=== PATIENT | female | born 1935 | race Caucasian/White ===

== ENCOUNTER 2016-11-06 17:22 | Outpatient (CLI) | payer MEDICARE, BC | END 2016-11-06 17:23 | disposition critical access hospital (66) | LOC: EMS 17:22 | PROVIDERS: ATTEND Surgery | DX: R51 Headache (principal); S09.90XA Unspecified injury of head, initial encounter; W18.30XA Fall on same level, unspecified, initial encounter; Y92.002 Bathroom of unspecified non-institutional (private) residence as the place of occurrence of the external cause; R05 Cough | CPT/HCPCS: A0425; A0429 ==

== ENCOUNTER 2016-11-06 17:37 | Emergency (ER) | payer MEDICARE, BC ==
[2016-11-06] MEDS ORDERED: OXYMETAZOLINE NASAL SPRAY NAS STA (17:45)
[2016-11-06] MEDS ORDERED: BENZONATATE 100 MG CAPSULE PO STA (17:45)
[2016-11-06] MEDS ORDERED: BENZONATATE 100 MG CAPSULE PO ONE ×2 (17:55→17:58)
[2016-11-06] MEDS ORDERED: OXYMETAZOLINE NASAL SPRAY NAS ONE (17:55)
== END 2016-11-06 19:22 | disposition home or self-care (01) ==
DX: S02.2XXA Fracture of nasal bones, initial encounter for closed fracture (principal); S09.90XA Unspecified injury of head, initial encounter; S00.83XA Contusion of other part of head, initial encounter; W18.39XA Other fall on same level, initial encounter; R05 Cough; R06.2 Wheezing; E10.22 Type 1 diabetes mellitus with diabetic chronic kidney disease; I12.0 Hypertensive chronic kidney disease with stage 5 chronic kidney disease or end stage renal disease; N18.6 End stage renal disease; Z99.2 Dependence on renal dialysis; Z79.4 Long term (current) use of insulin; I51.7 Cardiomegaly; Z79.82 Long term (current) use of aspirin
CPT/HCPCS: 36415; 70450; 70486; 71020; 80053; 83690; 85025; 99283; 99284; A9270

== ENCOUNTER 2016-12-02 18:54 | Outpatient (CLI) | payer MEDICARE, BC | END 2016-12-02 18:55 | disposition home or self-care (01) | DX: M79.662 Pain in left lower leg (principal); R93.8 Abnormal findings on diagnostic imaging of other specified body structures ==

== ENCOUNTER 2017-01-12 14:10 | Outpatient (CLI) | payer MEDICARE, BC | END 2017-01-12 14:11 | disposition home or self-care (01) | DX: E78.5 Hyperlipidemia, unspecified (principal); M10.9 Gout, unspecified ==

== ENCOUNTER 2017-01-29 17:21 | Outpatient (CLI) | payer MEDICARE, BC ==
[2017-01-29 18:53] LABS: CALCIUM 8.6 mg/dL (8.5-10.3); CREATININE 6.9 mg/dL (0.4-1.0); POTASSIUM 3.4 mmol/L (3.5-5.0)
[2017-01-29] MEDS ORDERED: IOPAMIDOL-300 100 ML VIAL IVP ONE (19:43)
--- NOTE | 2017-01-29 20:19 | CT Preliminary Report ---
Exam: CT Chest Angio (PE) IMPRESSION: 1. IV infiltration; cannot exclude pulmonary embolism. 2. Cardiomegaly, trace pericardial effusion, and coronary artery calcifications. 3. Large left upper quadrant cyst, most likely renal. 4. Mild bilateral bronchiectasis and other chronic or incidental findings. [facility] The call report notification system was initiated by Dr. Sourav De Guzman at 20:05 hrs on 01/29/17. The above findings were discussed with Dr. Churchill by Dr. Sourav De Guzman at 20:18 hrs on 01/29/17. SITE ID: [id number]
--- NOTE | 2017-01-29 20:22 | CT Report ---
EXAM: CT ANGIOGRAM CHEST EXAM DATE: 01/29/2017 07:41 PM. CLINICAL HISTORY: SHORTNESS OF BREATH. COMPARISON: None. TECHNIQUE: Routine helical imaging was performed through the chest in the pulmonary arterial phase. I V Contrast: Infiltration of the entire dose, 100 cc Isovue-300. Nursing was notified and IV infiltrat ion kit employed. Reconstructions: Sagittal, coronal, and 3-D MIP. In accordance with CT protocol optimization, one or more of the following dose reduction techniques w ere utilized for this exam: automated exposure control, adjustment of mA and/or KV based on patient s ize, or use of iterative reconstructive technique. FINDINGS: Pulmonary Arteries: Diagnostic quality: Inadequate through the segmental arteries. Cannot exclude pulmonary embolism. Lungs/Pleura: Bilateral bronchiectasis predominantly in the bases. No localized infiltrate, consolida tion, effusion, or pneumothorax. Extensive tracheal and bronchial cartilage calcification. Mediastinum: Mild to moderate cardiomegaly, trace pericardial effusion. At least 3 vessel coronary ar tahir calcifications. Calcifications of mitral annulus. No lymphadenopathy. Thoracic Aorta: Unremarkable. Upper Abdomen: Multiple hepatic cysts or hemangiomata. Large left upper quadrant cyst, most likely ar ising from kidney, incompletely seen. Other: None. IMPRESSION: 1. IV infiltration; cannot exclude pulmonary embolism. 2. Cardiomegaly, trace pericardial effusion, and coronary artery calcifications. 3. Large left upper quadrant cyst, most likely renal. 4. Mild bilateral bronchiectasis and other chronic or incidental findings. [facility] The call report notification system was initiated by Dr. Sourav De Guzman at 20:05 hrs on 01/29/17. The above findings were discussed with Dr. Churchill by Dr. Sourav De Guzman at 20:18 hrs on 01/29/17. Referring Provider Line: [phone] SITE ID: [id number]
== END 2017-01-29 17:22 | disposition home or self-care (01) ==
LOC: LAB 17:21
PROVIDERS: ATTEND Family Medicine
DX: I51.7 Cardiomegaly (principal); J47.9 Bronchiectasis, uncomplicated; I10 Essential (primary) hypertension
CPT/HCPCS: 36415; 71275; 80048; Q9967

== ENCOUNTER 2017-01-29 19:46 | Emergency (ER) | payer MEDICARE, BC ==
[2017-01-29] MEDS ORDERED: HYALURONIDASE HUMAN RECOMB 150 UNIT/ML VIAL ID ONE (20:14)
--- NOTE | 2017-01-29 20:15 | ED Physician Documentation ---
PD HPI UPPER EXT INJURY - Stated complaint Stated Complaint: MEDICATION NEEDED - Chief complaint Chief Complaint: General - History obtained from History obtained from: Patient - History of Present Illness Location: Right, Forearm Type of injury: Other (she was getting CT-A of chest and some contrast extravasated into her AC area. Brought here to ED to get the hyaluronidase injection per usual, but apparently is not a protocol, and there was not Radiologist to give order for the medication.) Where injury occurred: Other (Imaging dept of [facility]) Timing - onset: How many minutes ago (30) Timing - details: Abrupt onset, Still present Worsened by: Palpating (slightly tender locally). No: Moving Associated symptoms: No: Weakness, Numbness, Swelling Review of Systems Constitutional: denies: Fever, Chills Cardiac: reports: Chest pain / pressure (for several days) Respiratory: reports: Dyspnea GI: denies: Nausea, Vomiting Neurologic: denies: Focal weakness, Numbness PD PAST MEDICAL HISTORY - Past Medical History Cardiovascular: Hypertension, High cholesterol, Murmur Respiratory: None Neuro: None Endocrine/Autoimmune: Type 1 diabetes GI: None : Dialysis, Renal insuffiency HEENT: Chronic vision loss Psych: None Musculoskeletal: Osteoarthritis, Osteoporosis, Osteopenia, Gout, Chronic back pain Derm: Other - Past Surgical History 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, Other - Present Medications Home Medications: Ambulatory Orders Medication Instructions Recorded Confirmed Allopurinol [Zyloprim] 100 mg PO BID 04/05/13 11/06/16 Furosemide [Lasix] 160 mg PO BID 04/05/13 11/06/16 Insulin Glargine,Hum.rec.anlog 0 units SUBCUT QPM 04/05/13 11/06/16 [Lantus Solostar] Insulin Glulisine [Apidra Solostar] 0 unit SUBCUT TIDWM 04/05/13 11/06/16 Aspirin [Aspir 81] 81 mg PO DAILY 11/22/13 11/06/16 Gabapentin 600 mg PO BID 06/05/16 11/06/16 Vit B Cmplx 3/FA/Vit C/Biotin 1 each PO DAILY 06/05/16 11/06/16 [Winnie-Janeen Rx Tablet] Albuterol Sulfate [Proventil Hfa 1 unit INH PRN PRN 11/06/16 11/06/16 Inhaler] Carvedilol [Coreg] 25 mg PO DAILY 11/06/16 11/06/16 Folic Acid/Vit Bcomp,C [Winnie-Janeen 0 mg PO DAILY 11/06/16 11/06/16 Tablet] - Allergies Allergies/Adverse Reactions: Allergies Allergy/AdvReac Type Severity Reaction Status Date / Time amoxicillin Allergy Unknown Rash Verified 01/29/17 19:49 codeine Allergy Unknown Nausea Verified 01/29/17 19:49 hydrocodone Allergy Unknown Nausea Verified 01/29/17 19:49 Sulfa (Sulfonamide Allergy Unknown Rash Verified 01/29/17 19:49 Antibiotics) - Social History Does the pt smoke?: No Smoking Status: Never smoker Does the pt drink ETOH?: No Does the pt have substance abuse?: No - Immunizations Immunizations are current?: Yes - POLST Patient has POLST: No PD ED PE NORMAL - Vitals Vital signs reviewed: Yes - General General: Alert and oriented X 3, No acute distress, Well developed/nourished - Derm Derm: Normal color, Warm and dry - Extremities Extremities: Normal ROM s pain, No edema, Other (the right forearm with mild local bruising at AC. No pain with ROM of the elbow nor wrist. Normal sensation and color/cap refill in hand.) - Neuro Neuro: No motor deficit, No sensory deficit Results - Vitals Vitals: Oxygen O2 Source Room air PD MEDICAL DECISION MAKING - ED course Complexity details: considered differential (came from CT with contrast extravasation to get hyaluronidase per protocol. Radiologist not in house to order med and apparently not a protocol. The patient does not have any symptoms of pressure injury to arm. The CT was done but angio part nondiagnostic. At this time, prelim shows mild pericaridal effusion, no else acute. cannot exclude PE. Report called to PMD and I will defer further evaluation of it to PMD. ), d/w patient Departure - Departure Disposition: 01 Home, Self Care Clinical Impression: Extravasation injury Condition: Stable Record reviewed to determine appropriate education?: Yes Comments: Warm towels to the elbow area periodically tonight and tomorrow. Recheck if problems in the area. Discharge Date/Time: 01/29/17 21:30
[2017-01-29 21:30] VITALS: BP 139/65
== END 2017-01-29 21:30 | disposition home or self-care (01) ==
LOC: ED 19:46
DX: T80.818A Extravasation of other vesicant agent, initial encounter (principal); Y84.8 Other medical procedures as the cause of abnormal reaction of the patient, or of later complication, without mention of misadventure at the time of the procedure; Y92.238 Other place in hospital as the place of occurrence of the external cause; I10 Essential (primary) hypertension; E78.00 Pure hypercholesterolemia, unspecified; E10.9 Type 1 diabetes mellitus without complications; Z79.4 Long term (current) use of insulin; N28.9 Disorder of kidney and ureter, unspecified; Z99.2 Dependence on renal dialysis; M19.90 Unspecified osteoarthritis, unspecified site; M10.9 Gout, unspecified
CPT/HCPCS: 36415; 71275; 80048; 96372; 99283; 99284; Q9967

== ENCOUNTER 2017-02-11 09:57 | Outpatient (CLI) | payer MEDICARE, BC | END 2017-02-11 09:58 | disposition home or self-care (01) | LOC: LAB 09:57 | PROVIDERS: ATTEND Internal Medicine Nephrology | DX: I50.32 Chronic diastolic (congestive) heart failure (principal) | CPT/HCPCS: 36415; 83880 ==

== ENCOUNTER 2017-02-11 10:17 | Outpatient (CLI) | payer MEDICARE, BC ==
--- NOTE | 2017-02-11 15:57 | XRAY Report ---
TWO VIEW CHEST: 02/11/2017 CLINICAL INDICATION: Dyspnea for three weeks. COMPARISON: CT of 01/29/2017, plain film of 11/06/2016. FINDINGS: Frontal and lateral views of the chest demonstrate a normal cardiac silhouette. The lungs are clear. No pulmonary vascular congestion, effusion, or pneumothorax is present. IMPRESSION: NO EVIDENCE OF ACUTE CARDIOPULMONARY DISEASE. JOB #: [id number] EXT JOB #:[id number]
== END 2017-02-11 10:18 | disposition home or self-care (01) ==
LOC: DI 10:17
PROVIDERS: ATTEND Internal Medicine Nephrology
DX: R06.00 Dyspnea, unspecified (principal); I50.32 Chronic diastolic (congestive) heart failure
CPT/HCPCS: 36415; 71020; 83880

== ENCOUNTER 2017-03-22 11:08 | Outpatient (CLI) | payer MEDICARE, BC ==
--- NOTE | 2017-03-22 15:28 | Ultrasound Report ---
EXAM: BILATERAL LOWER EXTREMITY VENOUS ULTRASOUND EXAM DATE: 03/22/2017 11:20 AM. CLINICAL HISTORY: VARICOSE VEINS OF BILATERAL LOWER EXTREMITIES. Chronic lymphoid edema in the leg, c linical concern for DVT. COMPARISON: 12/02/2016. TECHNIQUE: Real-time sonographic vascular imaging was performed by the facility examiner through the lower extremities utilizing both color-flow and Doppler spectral analysis. Multiple career representative static i mages were saved for review. FINDINGS: Right: Common Femoral Vein (CFV): Normal. CFV-GSV Junction: Normal. Profunda Femoral Vein (PFV): Normal. Femoral Vein (FV) Prox: Normal. Femoral Vein (FV) Mid: Normal. Femoral Vein (FV) Dist: Normal. Popliteal Vein: Normal. Posterior Tibial Veins: Normal. Peroneal Veins: Normal. Left: Common Femoral Vein (CFV): Normal. CFV-GSV Junction: Normal. Profunda Femoral Vein (PFV): Normal. Femoral Vein (FV) Prox: Normal. Femoral Vein (FV) Mid: Normal. Femoral Vein (FV) Dist: Normal. Popliteal Vein: Normal. Posterior Tibial Veins: Normal. Peroneal Veins: Normal. Other: The prior left popliteal fossa nonvascular collection cannot be well seen. No fluid collection or focal abnormal Doppler flow in the right erazo can be identified. IMPRESSION: No evidence for deep venous thrombosis bilaterally. [facility] Referring Provider Line: [phone] SITE ID: [id number]
== END 2017-03-22 11:09 | disposition home or self-care (01) ==
LOC: DI 11:08
PROVIDERS: ATTEND Family Medicine
DX: I83.813 Varicose veins of bilateral lower extremities with pain (principal)
CPT/HCPCS: 93970

== ENCOUNTER 2017-03-23 10:28 | Outpatient (CLI) | payer MEDICARE, BC ==
[2017-03-23 20:06] LABS: BASOPHILS # (AUTO) 0.1 10^3/uL (0.0-0.1); BASOPHILS % (AUTO) 0.8 %; EOSINOPHILS # (AUTO) 0.3 10^3/uL (0.0-0.7); EOSINOPHILS % (AUTO) 2.6 %; HCT - HEMATOCRIT 31.2 % (37.0-47.0); LYMPHOCYTES # (AUTO) 0.8 10^3/uL (1.5-3.5); LYMPHOCYTES % (AUTO) 8.2 %; MEAN CORPUSCULAR HEMOGLOBIN 30.8 pg (27.0-31.0); MEAN CORPUSCULAR HGB CONC 32.2 g/dL (32.0-36.0); MEAN CORPUSCULAR VOLUME 95.6 fL (81.0-99.0); MEAN PLATELET VOLUME 7.7 fL (7.9-10.8); MONOCYTES # (AUTO) 1.2 10^3/uL (0.0-1.0); MONOCYTES % (AUTO) 12.3 %; NEUTROPHILS # (AUTO) 7.3 10^3/uL (1.5-6.6); NEUTROPHILS % (AUTO) 76.1 %; RED BLOOD COUNT 3.26 10^6/uL (4.20-5.40); RED CELL DISTRIBUTION WIDTH 16.9 % (12.0-15.0); UNCORRECTED WHITE BLOOD COUNT 9.6 x10^3/uL; WHITE BLOOD COUNT 9.6 x10^3/uL (4.8-10.8)
[2017-03-23 20:39] LABS: ALBUMIN/GLOBULIN RATIO 0.8 (1.0-2.2); BILIRUBIN,TOTAL 0.5 mg/dL (0.2-1.0); CALCIUM 9.2 mg/dL (8.5-10.3); POTASSIUM 3.5 mmol/L (3.5-5.0); TOTAL PROTEIN 6.9 g/dL (6.7-8.2)
[2017-03-23 21:15] LABS: HEMOGLOBIN A1C 0.46 g/dL
== END 2017-03-23 23:59 | disposition home or self-care (01) ==
LOC: LAB.WCP 10:28
PROVIDERS: ATTEND Family Medicine
DX: L03.115 Cellulitis of right lower limb (principal); M79.89 Other specified soft tissue disorders; E11.29 Type 2 diabetes mellitus with other diabetic kidney complication
CPT/HCPCS: 36415; 80053; 83036; 85025

== ENCOUNTER 2017-04-15 08:37 | Outpatient (CLI) | payer MEDICARE, BC | END 2017-04-15 08:38 | disposition home or self-care (01) | LOC: DI 08:37 | PROVIDERS: ATTEND Family Medicine | DX: R01.1 Cardiac murmur, unspecified (principal); R06.02 Shortness of breath; I35.0 Nonrheumatic aortic (valve) stenosis; I51.7 Cardiomegaly; R22.41 Localized swelling, mass and lump, right lower limb | CPT/HCPCS: 93306 ==

== ENCOUNTER 2017-04-15 08:37 | Outpatient (CLI) | payer MEDICARE, BC ==
--- NOTE | 2017-04-15 22:07 | CT Report ---
EXAM: RIGHT TIBIA/CALF WITHOUT CONTRAST EXAM DATE: 04/15/2017 09:02 AM. CLINICAL HISTORY: LOCALIZED SWELLING, MASS LUMP, RIGHT LOWER LIMB. COMPARISON: None. TECHNIQUE: Thin-section axial images were acquired of the tibia/fibula/calf without contrast. Post-pr ocessing: Coronal and sagittal reformats. Other: None. In accordance with CT protocol optimization, one or more of the following dose reduction techniques w ere utilized for this exam: automated exposure control, adjustment of mA and/or KV based on patient s ize, or use of iterative reconstructive technique. FINDINGS: Bones: No fracture or bone lesion. Joints: The knee and ankle joints are not included in the [id number]. Musculature: Normal. No fatty atrophy. Other: Prominent arterial calcifications. Throughout the visualized anterior, lateral and to a lesser degree medial subcutaneous fat of the mid and lower portion of the lower right leg, there are patchy areas of soft tissue thickening, fat stranding, and patchy associated small nodular and some linear branching soft tissue calcifications. Some of these calcifications definitely appear vascular in etio logy with many of the calcifications appearing nodular and not associated with a branching vascular p attern. There are some associated nodular areas of soft tissue thickening including ill-defined 1 cm diameter areas anterior to the tibia on axial image 100. Additional partially calcified nodular areas include an 8 mm area laterally on image 137. Multiple subcentimeter areas anteriorly between images 145 and 165. 1 cm nodular area at the anteromedial aspect on axial image 164. IMPRESSION: 1. Extensive areas of small chunky nodular as well as branching vascular-appearing subcutaneous soft tissue calcifications mostly clustered over the anterior and lateral aspect of the mid and lower port ions of the right lower leg. Some associated ill-defined areas of somewhat nodular soft tissue thicke rodri and fat stranding. The appearance is not specific. Soft tissue hemangioma or vascular malformati on are possible, but would typically have a more defined appearance. Multiple causes of dystrophic ca lcification may be considered, including prior infection, trauma or inflammatory process. Dermatomyos itis or scleroderma may be considered. Metabolic etiologies, such as hyperparathyroidism or hypervita minosis D may be considered. Infiltrating neoplasm is felt less likely, but could be considered. Biop sy in some of the more nodular-appearing areas may help to better characterize if indicated. [facility] Referring Provider Line: [phone] SITE ID: [id number]
== END 2017-04-15 08:38 | disposition home or self-care (01) ==
LOC: DI 08:37
PROVIDERS: ATTEND Family Medicine
DX: R22.41 Localized swelling, mass and lump, right lower limb (principal)

== ENCOUNTER 2017-06-29 10:57 | Outpatient (CLI) | payer MEDICARE, BC ==
--- NOTE | 2017-06-30 19:05 | Mammography Report ---
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 COMPARISON: 05/2016, 05/2015, 05/2014, 05/2013, 05/2012. TECHNIQUE: Routine CC and MLO projections were obtained of the breasts. The breasts demonstrate scattered fibroglandular densities bilaterally. Postoperative and post-treat ment changes in the right lower inner quadrant are stable. Coarse and punctate, typically benign mariana cifications are present. No suspicious masses, clustered microcalcifications, or regions of architec tural distortion are identified. IMPRESSION: BENIGN FINDINGS. RECOMMENDATION: ROUTINE ANNUAL SCREENING UNLESS OTHERWISE CLINICALLY INDICATED. BIRADS CATEGORY: 2, BENIGN FINDINGS. STANDARD QUALIFYING STATEMENTS 1. This examination was reviewed with the aid of Computed-Aided Detection (CAD). 2. A negative or benign imaging report should not delay biopsy if clinically suspicious findings are present. Consider surgical consultation if warranted. More than 5% of cancers are not identified b y imaging. 3. Dense breasts may obscure an underlying neoplasm. JOB #: [id number] EXT JOB #:[id number]
== END 2017-06-29 10:58 | disposition home or self-care (01) ==
LOC: DI 10:57
PROVIDERS: ATTEND Internal Medicine Hematology & Oncology
DX: Z12.31 Encounter for screening mammogram for malignant neoplasm of breast (principal); Z85.3 Personal history of malignant neoplasm of breast
CPT/HCPCS: 77067

== ENCOUNTER 2017-08-11 07:23 | Outpatient (CLI) | payer MEDICARE, BC | END 2017-08-11 07:24 | disposition EMS.NT | LOC: EMS 07:23 | PROVIDERS: ATTEND Surgery | DX: R55 Syncope and collapse (principal) ==

== ENCOUNTER 2017-11-12 05:20 | Outpatient (CLI) | payer MEDICARE, BC | END 2017-11-12 05:21 | disposition critical access hospital (66) | LOC: EMS 05:20 | PROVIDERS: ATTEND Surgery | DX: M54.5 Low back pain (principal); R26.81 Unsteadiness on feet; R41.0 Disorientation, unspecified; W19.XXXA Unspecified fall, initial encounter; Z91.81 History of falling; Y92.003 Bedroom of unspecified non-institutional (private) residence as the place of occurrence of the external cause | CPT/HCPCS: A0425; A0429 ==

== ENCOUNTER 2017-11-12 05:36 | Emergency (ER) | payer MEDICARE, BC ==
--- NOTE | 2017-11-12 05:52 | ED Physician Documentation ---
PD HPI BACK INJURY - Stated complaint Stated Complaint: GLF - LOWER BACK PAIN, CONFUSION - History obtained from History obtained from: Patient - History of Present Illness Location: Lower Type of injury: Fall Where injury occurred: Home Timing - onset: How many hours ago (couple) Timing - duration: Hours (she had fallen stumbled with walker going to bathroom. She says her legs did feel weak. Denies hitting head, but landed onto buttocks with low back pain. Once down, she could not get back up, and had to call EMS for lift assist. They helped her up but felt that she was weak on her legs and she slumped down again. She also seemed slightly confused and so Medics brought her in for evaluation. Patient had been seen recently for neck pain and has new med Rx of Baclofen which she started a few days ago. She says she was feeling somewhat foggy and lightheaded after taking it.) Timing - details: Abrupt onset, Still present Quality: Pain (lumbar area) Worsened by: Moving, Palpating (of lower back) Associated symptoms: No: Fever, Weakness, Numbness Contributing factors: No: Anticoagulated, Prior back surgery Recently seen: Clinic (several days ago for neck pain and Rx Baclofen 5 mg BID.) Review of Systems Constitutional: denies: Fever, Chills Nose: denies: Rhinorrhea / runny nose, Congestion Throat: denies: Sore throat Cardiac: denies: Chest pain / pressure, Palpitations Respiratory: denies: Dyspnea, Cough, Wheezing GI: denies: Abdominal Pain, Nausea, Vomiting, Diarrhea Skin: denies: Abrasion (s), Laceration (s) Musculoskeletal: reports: Back pain (abruptly after falling tonight) Neurologic: reports: Generalized weakness. 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, Other - Present Medications Home Medications: Ambulatory Orders Medication Instructions Recorded Confirmed Allopurinol [Zyloprim] 100 mg PO BID 04/05/13 06/23/17 Furosemide [Lasix] 160 mg PO BID 04/05/13 06/23/17 Gabapentin 600 mg PO BID 06/05/16 06/23/17 Ferrous Sulfate [Ferrous Sulfate] 65 mg PO DAILY PM 06/23/17 06/23/17 Vit B Cmplx 3/FA/Vit C/Biotin 1 tab PO DAILY 06/23/17 06/23/17 [Winnie-Janeen Rx Tablet] - Allergies Allergies/Adverse Reactions: Allergies Allergy/AdvReac Type Severity Reaction Status Date / Time amoxicillin Allergy Unknown Rash Verified 11/12/17 05:52 codeine Allergy Unknown Nausea Verified 11/12/17 05:52 hydrocodone Allergy Unknown Nausea Verified 11/12/17 05:52 Sulfa (Sulfonamide Allergy Unknown Rash Verified 11/12/17 05:52 Antibiotics) - Social History Does the pt smoke?: No Smoking Status: Never smoker Does the pt drink ETOH?: No Does the pt have substance abuse?: No - Immunizations Immunizations are current?: Yes - POLST Patient has POLST: No PD ED PE NORMAL - Vitals Vital signs reviewed: Yes - General General: Alert and oriented X 3 (but with some word search and perseveration seems c/w concussive effect.), No acute distress, Well developed/nourished - HEENT HEENT: Atraumatic, PERRL, EOMI, Pharynx benign - Neck Neck: Supple, no meningeal sign, No bony TTP, No adenopathy, No JVD, No bruit - Cardiac Cardiac: RRR, No murmur - Respiratory Respiratory: Clear bilaterally - Abdomen Abdomen: Soft, Non tender, Other (dialysis tubing in place. ) - Back Back: Other (lumbar spine tender to palpation in mid to upper lumbar area. ) - Derm Derm: Normal color - Extremities Extremities: No tenderness to palpate, No edema, No calf tenderness / cord - Neuro Neuro: Alert and oriented X 3, No motor deficit, Normal speech, Other (having some repetitive answers and trouble with some word search. No focal deficits. Is oriented, but just a bit slow and repetitive. ) Eye Opening: Spontaneous Motor: Obeys Commands Verbal: Oriented GCS Score: 15 Results - Vitals Vitals: Vital Signs - 24 hr 11/12/17 11/12/17 11/12/17 05:39 06:21 07:51 Temperature 36.8 C Heart Rate 101 H 96 97 Respiratory 17 17 17 Rate Blood Pressure 193/87 H 170/87 H 175/77 H O2 Saturation 100 96 97 Oxygen O2 Source Room air - Labs Labs: Laboratory Tests 11/12/17 11/12/17 06:30 06:30 WBC 18.5 H RBC 2.96 L Hgb 9.4 L Hct 28.8 L MCV 97.2 MCH 31.8 H MCHC 32.8 RDW 16.3 H Plt Count 306 MPV 7.1 L Neut # 16.6 H Lymph # 0.5 L Mccone # 1.4 H Eos # 0.0 Baso # 0.0 Absolute Nucleated RBC 0.02 Nucleated RBC % 0.1 Sodium 130 L Potassium 2.2 L* Chloride 90 L Carbon Dioxide 24 Anion Gap 16.0 H BUN 37 H Creatinine 6.3 H Estimated GFR (MDRD) 6 L Glucose 268 H Calcium 8.0 L Phosphorus 4.8 H Magnesium 1.3 L Total Bilirubin 0.7 AST 25 ALT 19 Alkaline Phosphatase 88 Total Protein 6.4 L Albumin 2.9 L Globulin 3.5 Albumin/Globulin Ratio 0.8 L Lipase 19 L - Rads (name of study) head CT Radiology: Prelim report reviewed (no acute process), EMP read contemporaneously lumbar CT Radiology: Prelim report reviewed (L2 compression body fracture with 15% loss of height. ), EMP read contemporaneously PD MEDICAL DECISION MAKING - ED course Complexity details: re-evaluated patient (She was unable to stand with walker due to pain in back. Will give more pain meds. I am concerned about the altered train of thought, in context of fall at home, could genna concussive symptoms. She is recently Rx Baclofen few days ago, so could be med side effect. Also with very low Potassium, likely contributing to the weakness and fall. Problem is she is on home peritoneal dialysis and our hospital does not have policy on this the hospital. So patient will need to be transferred. She has been to [facility] and her Quality Assurance Lab Technician, Dr. JUNG Pang is there. ), d/w remediation bioanalytics consultant (our hospitalist who said would not be able to treat patient here due to the need for dialysis (even peritoneal). So will call [facility] for bed availability. ) Departure - Departure Disposition: 02 Transfer Acute Care Hosp Clinical Impression: Generalized weakness, Acute hypokalemia, Acute low back pain due to trauma Fall from slip, trip, or stumble Qualifiers: Encounter type: initial encounter Qualified Code(s): W01.0XXA - Fall on same level from slipping, tripping and stumbling without subsequent striking against object, initial encounter Lumbar compression fracture Qualifiers: Encounter type: initial encounter Lumbar vertebra fracture level: L2 Fracture type: closed Qualified Code(s): S32.020A - Wedge compression fracture of second lumbar vertebra, initial encounter for closed fracture Altered mental status Qualifiers: Altered mental status type: unspecified Qualified Code(s): R41.82 - Altered mental status, unspecified Concussion Qualifiers: Encounter type: initial encounter Loss of consciousness presence/duration: with LOC of unspecified duration Qualified Code(s): S06.0X9A - Concussion with loss of consciousness of unspecified duration, initial encounter Chronic renal failure Qualifiers: Chronic kidney disease stage: unspecified stage Qualified Code(s): N18.9 - Chronic kidney disease, unspecified Condition: Stable Record reviewed to determine appropriate education?: Yes
[2017-11-12] MEDS ORDERED: ACETAMINOPHEN 325 MG TABLET PO STA (06:14)
[2017-11-12 06:34] LABS: HGB - HEMOGLOBIN 9.4 g/dL (12.0-16.0); MEAN PLATELET VOLUME 7.1 fL (7.9-10.8); MONOCYTES # (AUTO) 1.4 10^3/uL (0.0-1.0); RED CELL DISTRIBUTION WIDTH 16.3 % (12.0-15.0)
[2017-11-12 06:40] LABS: BASOPHILS % (AUTO) 0.1 %; EOSINOPHILS % (AUTO) 0.2 %; LYMPHOCYTES # (AUTO) 0.5 10^3/uL (1.5-3.5); LYMPHOCYTES % (AUTO) 2.5 %; MEAN CORPUSCULAR HEMOGLOBIN 31.8 pg (27.0-31.0); MEAN CORPUSCULAR HGB CONC 32.8 g/dL (32.0-36.0); MEAN CORPUSCULAR VOLUME 97.2 fL (81.0-99.0); MONOCYTES % (AUTO) 7.7 %; NEUTROPHILS # (AUTO) 16.6 10^3/uL (1.5-6.6); NEUTROPHILS % (AUTO) 89.5 %; PLT - PLATELET COUNT 306 10^3/uL (130-450); RED BLOOD COUNT 2.96 10^6/uL (4.20-5.40); WHITE BLOOD COUNT 18.5 x10^3/uL (4.8-10.8)
[2017-11-12 06:49] LABS: ALBUMIN 2.9 g/dL (3.2-5.5); ALBUMIN/GLOBULIN RATIO 0.8 (1.0-2.2); BILIRUBIN,TOTAL 0.7 mg/dL (0.2-1.0); CREATININE 6.3 mg/dL (0.4-1.0); MAGNESIUM 1.3 mg/dL (1.7-2.8); PHOSPHORUS 4.8 mg/dL (2.5-4.6); TOTAL PROTEIN 6.4 g/dL (6.7-8.2)
[2017-11-12] MEDS ORDERED: POTASSIUM BICARB 25 MEQ TABLET PO STA ×2 (07:10→12:30)
[2017-11-12] MEDS ORDERED: MAGNESIUM OXIDE 400 MG TABLET PO STA (07:10)
--- NOTE | 2017-11-12 07:36 | CT Report ---
EXAM: CT HEAD EXAM DATE: 11/12/2017 06:50 AM. CLINICAL HISTORY: Fell onto buttock/low back, but some confused. COMPARISON: 11/06/2016. TECHNIQUE: Multiaxial CT images were obtained from the foramen magnum to the vertex. Reformats: Coron al. IV contrast: None. In accordance with CT protocol optimization, one or more of the following dose reduction techniques w ere utilized for this exam: automated exposure control, adjustment of mA and/or KV based on patient s ize, or use of iterative reconstructive technique. FINDINGS: Parenchyma: No intraparenchymal hemorrhage. No evidence of mass, midline shift, or CT findings of acu te infarction. Kaplan-white differentiation is distinct. Diffuse chronic microangiopathic white matter changes are evident. Extraaxial Spaces: Stable prominent subarachnoid space along right temporal lobe may represent a smal l arachnoid cyst No subdural or epidural collections identified. Ventricles: The ventricles and cortical sulci are enlarged, consistent with age-related tissue loss. Sinuses and orbits: Mucosal thickening sphenoid sinus Imaged orbits, and mastoids show no significa nt abnormality. Bones: No evidence of fracture or calvarial defect. Other: None. IMPRESSION: Generalized age-related cortical atrophic changes without evidence of acute intracranial abnormality. [facility] Referring Provider Line: [phone] SITE ID: [id number]
--- NOTE | 2017-11-12 07:36 | CT Preliminary Report ---
Exam: CT HEAD W/O IMPRESSION: Generalized age-related cortical atrophic changes without evidence of acute intracranial abnormality. [facility] SITE ID: [id number]
[2017-11-12] MEDS ORDERED: traMADol 50 MG TABLET PO STA (07:53)
--- NOTE | 2017-11-12 07:54 | CT Preliminary Report ---
Exam: CT LUMBAR SPINE W/O IMPRESSION: 1. L2 vertebral body fracture may extend into the posterior third of the vertebral body 2. Severe left hydro-ureter hydronephrosis incompletely visualized with moderate free fluid in the ab domen, pelvis. CT abdomen and pelvis may be helpful for further evaluation. [facility] SITE ID: [id number]
--- NOTE | 2017-11-12 07:54 | CT Report ---
EXAM: CT LUMBAR SPINE WITHOUT CONTRAST EXAM DATE: 11/12/2017 06:50 AM. CLINICAL HISTORY: Fell onto buttocks, with pain in left low spine. COMPARISONS: 10/17/2008 CT abdomen and pelvis. TECHNIQUE: Thin-section axial images were acquired of the lumbar spine from T12 to S1 without contras t. Post-processing: Coronal and sagittal reformats. Other: None. In accordance with CT protocol optimization, one or more of the following dose reduction techniques w ere utilized for this exam: automated exposure control, adjustment of mA and/or KV based on patient s ize, or use of iterative reconstructive technique. FINDINGS: Alignment: Grade 1 spondylolisthesis L5 on S1 Bones: Five aae-oup-aoranpo lumbar vertebral bodies are present. L2 vertebral body fracture. This may reach the posterior third of the vertebral body. Central comp ression loss of height of 15%. No retropulsion of the vertebral body. No free fragment in the thecal sac. Disk Levels/Facets: T12-L1: Unremarkable. L1-L2: Unremarkable. L2-L3: Mild bulge L3-L4: Left paracentral to neural foraminal protrusion. Narrowing of the inferior left neural foramin a. L4-L5: Moderate diffuse fold more prominent along the left side. Ligamentum flavum thickening. Narrow ing of inferior neural foramina L5-S1: Uncovering of the disk moderate diffuse bulge. Moderate facet arthropathy. Bilateral neural fo raminal narrowing. Musculature: Normal. No fatty atrophy. Other: Right renal cyst, hyperdense foci. Left kidney severe hydroureteronephrosis. There is free flu id in the abdomen and pelvis pockets measuring up to 7 cm. Diverticulosis IMPRESSION: 1. L2 vertebral body fracture may extend into the posterior third of the vertebral body 2. Severe left hydro-ureter hydronephrosis incompletely visualized with moderate free fluid in the ab domen, pelvis. CT abdomen and pelvis may be helpful for further evaluation. [facility] Referring Provider Line: [phone] SITE ID: [id number]
[2017-11-12] MEDS ORDERED: POTASSIUM CHLOR 10 MEQ/100 ML 10 MEQ/100 ML BAG IV ONE (08:30)
[2017-11-12] MEDS ORDERED: fentaNYL 100 MCG/2 ML VIAL IVP STA ×2 (08:52→13:48)
[2017-11-12 10:32] LABS: BILIRUBIN,URINE NEGATIVE (NEGATIVE); GLUCOSE, URINE (UA) NEGATIVE (NEGATIVE); KETONES,URINE (UA) NEGATIVE (NEGATIVE); LEUKOCYTE ESTERASE, URINE SMALL (NEGATIVE); NITRITE,URINE NEGATIVE (NEGATIVE); OCCULT BLOOD,URINE SMALL (NEGATIVE); PH,URINE 6.5 PH (5.0-7.5); PROTEIN,URINE 100 mg/dL (NEGATIVE); UROBILINOGEN,URINE 0.2 (NORMAL) E.U./dL (NORMAL)
[2017-11-12 10:35] LABS: CLARITY,URINE HAZY (CLEAR)
[2017-11-12 10:47] LABS: BACTERIA,URINE Many /HPF (None Seen); RBC,URINE 0-5 /HPF (0-5); SQUAMOUS EPITHELIAL CELL,UR MANY Squamous (<= Few)
--- NOTE | 2017-11-12 12:52 | ED Physician Documentation ---
ED Addendum - Addendum Addendum: 11/12/17 12:49 Care of patient turned over to me by Dr. Saavedra at shift change. The patient has new compression fracture at L2 and concussion. She has low potassium as well and does peritoneal dialysis at home by herself. She is no longer able to get up out of bed and appears a bit confused. Dr. Francia Leos is accepting hospitalist at [facility] in [place]. EKG: time: 12:41 sinus at 90, LAFB, LVH, prolonged QT (QTc= 513) non-specific T abnormalities lateral leads, late transition. [facility] 11/12/17 12:52
[2017-11-12 13:38] VITALS: BP 161/76
== END 2017-11-12 13:56 | disposition short-term general hospital (02) ==
LOC: EDUNIT# → ED 05:36
DX: S32.020A Wedge compression fracture of second lumbar vertebra, initial encounter for closed fracture (principal); S06.0X9A Concussion with loss of consciousness of unspecified duration, initial encounter; W01.0XXA Fall on same level from slipping, tripping and stumbling without subsequent striking against object, initial encounter; Y93.01 Activity, walking, marching and hiking; Y92.009 Unspecified place in unspecified non-institutional (private) residence as the place of occurrence of the external cause; M54.5 Low back pain; I12.9 Hypertensive chronic kidney disease with stage 1 through stage 4 chronic kidney disease, or unspecified chronic kidney disease; E11.22 Type 2 diabetes mellitus with diabetic chronic kidney disease; N18.9 Chronic kidney disease, unspecified; Z79.4 Long term (current) use of insulin; Z99.2 Dependence on renal dialysis; Q60.0 Renal agenesis, unilateral; R53.1 Weakness; E87.6 Hypokalemia; R41.82 Altered mental status, unspecified; I44.4 Left anterior fascicular block; R94.31 Abnormal electrocardiogram [ECG] [EKG]; E78.00 Pure hypercholesterolemia, unspecified; M19.90 Unspecified osteoarthritis, unspecified site; M10.9 Gout, unspecified
CPT/HCPCS: 36415; 70450; 72131; 80053; 81001; 83690; 83735; 84100; 85025; 93005; 96365; 96375; 96376; 99285; A9270; 81003; 87086; 99284

== ENCOUNTER 2017-11-12 13:57 | Outpatient (CLI) | payer MEDICARE, BC | END 2017-11-12 13:58 | disposition short-term general hospital (02) | LOC: EMS 13:57 | PROVIDERS: ATTEND Surgery | DX: E87.6 Hypokalemia (principal); M54.5 Low back pain; R41.82 Altered mental status, unspecified; Z99.2 Dependence on renal dialysis | CPT/HCPCS: A0170; A0425; A0426 ==

== ENCOUNTER 2017-12-21 00:42 | Outpatient (CLI) | payer MEDICARE, BC | END 2017-12-21 00:43 | disposition critical access hospital (66) | LOC: EMS 00:42 | PROVIDERS: ATTEND Surgery | DX: R06.02 Shortness of breath (principal) | CPT/HCPCS: A0425; A0427 ==

== ENCOUNTER 2017-12-21 00:58 | Emergency (ER) | payer MEDICARE, BC ==
--- NOTE | 2017-12-21 01:29 | ED Physician Documentation ---
PD HPI DYSPNEA - Stated complaint Stated Complaint: SOA - Chief complaint Chief Complaint: Resp - History obtained from History obtained from: Patient - History of Present Illness Timing - onset: How many days ago (2) Timing - details: Gradual onset, Waxing and waning Pain level now: 0 Associated symptoms: Bilateral edema. No: Fever, Cough, Wheezing, Chest pain / discomfort, Palpitations Similar symptoms before: Has not had sx before - Additional information Additional information: c/o 2 days of shortness of breath, worse with exertion. Has not had this before. Was having peritoneal dialysis up until last month (since February,) when she was started on [facility] HD, last session was Thursday (she says it was shorten than usual due to scheduling issues with her transport home), and next HD session is scheduled for 12/21/17 at 2:30 PM. She does still produce urine and takes 80mg BID furosemide for peripheral edema. BIBA. medics recommended she consider transfer to [facility], as they would be able to perform HD. Patient refused and asked about [facility], preferring transfer there. As the ferries were not running, the medics felt it would be more appropriate to transfer to [facility] if she truly refuses transfer to [facility]. Patient was agreeable to this plan. Review of Systems Constitutional: denies: Fever, Chills, Sweats Cardiac: reports: Pedal edema. denies: Chest pain / pressure, Palpitations Respiratory: reports: Dyspnea, Cough. 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, Other - Present Medications Home Medications: Ambulatory Orders Medication Instructions Recorded Confirmed Furosemide [Lasix] 80 mg PO BID 04/05/13 06/23/17 Gabapentin 600 mg PO BID 06/05/16 06/23/17 Vit B Cmplx 3/FA/Vit C/Biotin 1 tab PO DAILY 06/23/17 06/23/17 [Winnie-Janeen Rx Tablet] Acetaminophen [Tylenol Extra 500 mg PO TID 12/21/17 12/21/17 Strength] Insulin Glargine [Lantus Solostar] 10 units SQ DAILY 12/21/17 12/21/17 Insulin Lispro [Humalog Kwikpen 3 units SQ TID 12/21/17 12/21/17 U-100] Sevelamer Carbonate 3 tab PO TID 12/21/17 12/21/17 Spironolactone 25 mg PO BID 12/21/17 12/21/17 oxyCODONE [Roxicodone] 5 mg PO Q4HR PRN 12/21/17 12/21/17 - Allergies Allergies/Adverse Reactions: Allergies Allergy/AdvReac Type Severity Reaction Status Date / Time amoxicillin Allergy Unknown Rash Verified 12/21/17 01:05 codeine Allergy Unknown Nausea Verified 12/21/17 01:05 hydrocodone Allergy Unknown Nausea Verified 12/21/17 01:05 Sulfa (Sulfonamide Allergy Unknown Rash Verified 12/21/17 01:05 Antibiotics) - Social History Does the pt smoke?: No Smoking Status: Never smoker Does the pt drink ETOH?: No Does the pt have substance abuse?: No - Immunizations Immunizations are current?: Yes - POLST Patient has POLST: No PD ED PE NORMAL - Vitals Vital signs reviewed: Yes - General General: Alert and oriented X 3, No acute distress (conversant but often needs to stop mid-sentence to take another breath), Well developed/nourished - HEENT HEENT: Moist mucous membranes - Neck Neck: Supple, no meningeal sign - Cardiac Cardiac: RRR PD ED PE EXPANDED - Cardiac Cardiac: Regular Rate, Murmur Present (2/6 KYLAH at base, greatest at 2nd left ICS ). No: S3, S4 Results - Vitals Vitals: Vital Signs - 24 hr 12/21/17 12/21/17 12/21/17 02:07 02:33 03:06 Heart Rate 104 H 104 H 106 H Respiratory 18 24 24 Rate Blood Pressure 145/87 H 182/95 H 175/89 H O2 Saturation 92 94 94 12/21/17 12/21/17 12/21/17 04:19 07:18 09:04 Heart Rate 95 102 H 100 Respiratory 20 18 18 Rate Blood Pressure 171/82 H 177/100 H 161/89 H O2 Saturation 94 95 94 Oxygen O2 Source Nasal cannula Oxygen Flow Rate 3 - EKG (time done) No standard instances Rate: Rate (enter#) (106) Rhythm: Sinus tachycardia, LAE Palmer: LAD Intervals: Normal MS QRS: LVH Ischemia: Normal ST segments, Q waves (III, aVF) Compare to prior EKG: Unchanged from prior EKG (11/12/17) - Labs Labs: Laboratory Tests 12/21/17 12/21/17 12/21/17 02:05 02:05 02:05 WBC 8.2 RBC 2.84 L Hgb 9.3 L Hct 28.1 L MCV 99.1 H MCH 32.7 H MCHC 33.1 RDW 16.7 H Plt Count 323 MPV 7.1 L Neut # 5.9 Lymph # 0.9 L [place] # 0.9 Eos # 0.3 Baso # 0.2 H Absolute Nucleated RBC 0.00 Nucleated RBC % 0.0 Sodium 130 L Potassium 4.4 Chloride 92 L Carbon Dioxide 27 Anion Gap 11.0 BUN 28 H Creatinine 5.1 H Estimated GFR (MDRD) 8 L Glucose 140 H POC Whole Bld Glucose Calcium 8.9 B-Natriuretic Peptide 3068 H 12/21/17 08:28 WBC RBC Hgb Hct MCV MCH MCHC RDW Plt Count MPV Neut # Lymph # [place] # Eos # Baso # Absolute Nucleated RBC Nucleated RBC % Sodium Potassium Chloride Carbon Dioxide Anion Gap BUN Creatinine Estimated GFR (MDRD) Glucose POC Whole Bld Glucose 135 H Calcium B-Natriuretic Peptide - Rads (name of study) chest xray Radiology: Prelim report reviewed, See rad report PD MEDICAL DECISION MAKING - ED course Complexity details: reviewed old records, reviewed results, re-evaluated patient , considered differential, d/w patient ED course: patient says she has not needed to use or be given oxygen in the past and tonight her symptoms did improve with NC supplemental oxygen (3 liters). On arrival to ED, oxygen was removed to move patient to ED stretcher and her pulse ox went from 94% to 88%; this again improved rapidly with placement of the oxygen NC 3L. After multiple pages to Dr. Mccoy, still hadn't received call back here. I then contacted the transfer service at [place], and they inform me that Dr. Rodriguez is on-call nephrology (my OBIEE ARCHITECT was told Dr. Mccoy by the dialysis center in [place]). I was subsequently called by Dr. Pang. He called to the dialysis center in [place] and then called me back; he was able to change patient's dialysis to 9:30 AM. Patient was held in ED until 8:45 AM and then sent to dialysis in [place]. She was in NAD at the time of discharge with mild HTN and mid-90s pulse ox with 3 liters NC oxygen. Departure - Departure Disposition: 01 Home, Self Care Clinical Impression: Chronic renal failure Qualifiers: Chronic kidney disease stage: unspecified stage Qualified Code(s): N18.9 - Chronic kidney disease, unspecified Dyspnea Qualifiers: Dyspnea type: unspecified Qualified Code(s): R06.00 - Dyspnea, unspecified Condition: Good Instructions: ED Renal Failure Chronic, ED Dyspnea Shortness of Breath, ED Dialysis Hemo Follow-Up: Matilde Churchill MD [Primary Care Provider] - Comments: You will be taken from the emergency department to the dialysis center in [place]. Your symptoms should dramatically improve, possibly resolve, with the dialysis. Discharge Date/Time: 12/21/17 09:04
[2017-12-21] MEDS ORDERED: NITROGLYCERIN SL 0.4 MG TABLET SL STA (01:56)
[2017-12-21] MEDS ORDERED: FUROSEMIDE 40 MG/4 ML VIAL IVP STA (01:57)
[2017-12-21 02:09] LABS: BASOPHILS # (AUTO) 0.2 10^3/uL (0.0-0.1); BASOPHILS % (AUTO) 2.3 %; EOSINOPHILS # (AUTO) 0.3 10^3/uL (0.0-0.7); EOSINOPHILS % (AUTO) 3.5 %; HGB - HEMOGLOBIN 9.3 g/dL (12.0-16.0); LYMPHOCYTES # (AUTO) 0.9 10^3/uL (1.5-3.5); LYMPHOCYTES % (AUTO) 11.1 %; MEAN CORPUSCULAR HEMOGLOBIN 32.7 pg (27.0-31.0); MEAN CORPUSCULAR HGB CONC 33.1 g/dL (32.0-36.0); MEAN CORPUSCULAR VOLUME 99.1 fL (81.0-99.0); MEAN PLATELET VOLUME 7.1 fL (7.9-10.8); MONOCYTES # (AUTO) 0.9 10^3/uL (0.0-1.0); MONOCYTES % (AUTO) 10.9 %; NEUTROPHILS # (AUTO) 5.9 10^3/uL (1.5-6.6); NEUTROPHILS % (AUTO) 72.2 %; PLT - PLATELET COUNT 323 10^3/uL (130-450); RED BLOOD COUNT 2.84 10^6/uL (4.20-5.40); RED CELL DISTRIBUTION WIDTH 16.7 % (12.0-15.0); WHITE BLOOD COUNT 8.2 x10^3/uL (4.8-10.8)
[2017-12-21 02:17] LABS: CALCIUM 8.9 mg/dL (8.5-10.3); CREATININE 5.1 mg/dL (0.4-1.0)
--- NOTE | 2017-12-21 02:43 | XRAY Report ---
EXAM: CHEST RADIOGRAPHY EXAM DATE: 12/21/2017 02:27 AM. CLINICAL HISTORY: Dyspnea. COMPARISON: Chest radiograph 10/28/2017 TECHNIQUE: 2 views. FINDINGS: Lungs/Pleura: Small left and trace right pleural effusion. Interval increase in prominence of the pul monary vasculature. No evidence of pneumothorax. Mediastinum: Moderate enlargement of the cardiomediastinal silhouette. Other: Right IJ catheter tip is within the distal SVC. Compression fracture of the L2 vertebral body. Atherosclerosis of the visualized aorta. IMPRESSION: Moderate enlargement of the cardiomediastinal silhouette with interval increase in promin ence of the pulmonary vasculature. Small left and trace right pleural effusions. Overall, the finding s may represent congestive heart failure. [facility] Referring Provider Line: [phone] SITE ID: [id number]
[2017-12-21] MEDS ORDERED: ACETAMINOPHEN 325 MG TABLET PO STA ×2 (02:58→07:24)
[2017-12-21] MEDS ORDERED: NITROGLYCERIN 2% PASTE TOP STA (03:13)
[2017-12-21 09:07] VITALS: BP 161/89
== END 2017-12-21 09:04 | disposition home or self-care (01) ==
LOC: EDUNIT# → ED 00:58 → SUPCPDRO 00:58 → ED 09:04
DX: I12.9 Hypertensive chronic kidney disease with stage 1 through stage 4 chronic kidney disease, or unspecified chronic kidney disease (principal); E11.22 Type 2 diabetes mellitus with diabetic chronic kidney disease; N18.9 Chronic kidney disease, unspecified; R06.00 Dyspnea, unspecified; Z79.4 Long term (current) use of insulin; Z99.2 Dependence on renal dialysis
CPT/HCPCS: 36415; 71046; 80048; 83880; 85025; 93005; 96374; 99284; A9270

== ENCOUNTER 2017-12-21 09:04 | Outpatient (CLI) | payer MEDICARE, BC | END 2017-12-21 09:05 | disposition home or self-care (01) | LOC: EMS 09:04 | PROVIDERS: ATTEND Surgery | DX: N18.9 Chronic kidney disease, unspecified (principal) | CPT/HCPCS: A0425; A0428 ==

== ENCOUNTER 2017-12-29 13:09 | Outpatient (CLI) | payer MEDICARE, BC ==
--- NOTE | 2017-12-29 16:41 | DEXA Report ---
DEXA SCAN: 12/29/2017 CLINICAL INDICATION: Bone disorder. TECHNIQUE: Dual energy x-ray absorptiometry (DXA) was performed on a [employer] system. Regions measured are the AP spine, femoral neck, and, if needed, forearm. COMPARISON: 06/17/2016. In accordance with the International Society for Clinical Densitometry (ISCD) guidelines, data from previous exams may be reanalyzed using current recommendations and techniques. This is done to allow a more accurate basis for comparison with the current study. FINDINGS Data for the lumbar spine is as follows: REGION BMD (g/cm/cm) T-SCORE Z-SCORE L3 1.124 -0.6 0.6 L4 1.139 -0.5 0.7 L3-L4 1.132 -0.6 0.6 NOTE: All evaluable vertebrae are used for classification - L1 and L2 were excluded from analysis, due to overlying metallic artifacts. Data for the hip is as follows: REGION BMD (g/cm/cm) T-SCORE Z-SCORE Neck 0.741 -2.1 -0.3 TOTAL 0.787 -1.8 -0.1 NOTE: The femoral neck or total proximal femur, whichever is lowest, is used for classification. DEXA RESULTS SUMMARY: Spine 3 SCAN DATE AGE BMD T-SCORE BMD CHANGE VS BASELINE BMD CHANGE VS PREVIOUS 12/29/2017 [age] 1.132 -- 0.030 2.7 06/17/2016 80.8 1.102 -- -- -- * Denotes significant change at the 95% confidence level. Denotes dissimilar scan types or analysis methods. DEXA RESULTS SUMMARY: Total hip 3 SCAN DATE AGE BMD T-SCORE BMD CHANGE VS BASELINE BMD CHANGE VS PREVIOUS 12/29/2017 82.3 0.787 -- -0.058* -6.9* 06/17/2016 80.8 0.845 -- -- -- * Denotes significant change at the 95% confidence level. Denotes dissimilar scan types or analysis methods. IMPRESSION 1. WHO CLASSIFICATION BASED ON THE INTERNATIONAL REFERENCE STANDARD IS OSTEOPENIA. FRACTURE RISK IS INCREASED. 2. THERE HAS BEEN STATISTICALLY SIGNIFICANT INTERVAL DECREASE IN BONE MINERAL DENSITY OF THE LEFT HIP FROM 06/17/2016. 3. L1 AND L2 WERE EXCLUDED FROM ANALYSIS, DUE TO OVERLYING METALLIC ARTIFACTS. RECOMMENDATION: Patients with diagnosis of osteoporosis or osteopenia should have regular bone mineral density assessment. For those eligible for Medicare, routine testing is allowed once every 2 years. Testing frequency can be increased for patients who have rapidly progressing disease or for those who are receiving medical therapy to restore bone mass. COMMENT World Health Organization (WHO) definitions for osteoporosis and osteopenia: NORMAL BMD: T-score at 1.0 or higher, fracture risk is low. OSTEOPENIA BMD: T-score between 1.0 and -2.5, fracture risk is increased. OSTEOPOROSIS BMD: T-score at 2.5 or lower, fracture risk high. National Osteoporosis Foundation recommends: 1. Obtain adequate dietary calcium (at least 1200 mg per day) and vitamin D (400 -800 international units per day). 2. Participate, as appropriate, in regular weightbearing and muscle- strengthening exercise. 3. Avoid tobacco use and reduce alcohol and caffeine intake. 4. For more detailed information see the website at www.NOF.org. TD: 12/29/2017 14:49 SUSIE
== END 2017-12-29 13:10 | disposition home or self-care (01) ==
LOC: DI 13:09
PROVIDERS: ATTEND Family Medicine
DX: M85.88 Other specified disorders of bone density and structure, other site (principal); N19 Unspecified kidney failure; S32.020A Wedge compression fracture of second lumbar vertebra, initial encounter for closed fracture
CPT/HCPCS: 77080

== ENCOUNTER 2018-01-28 17:05 | Outpatient (CLI) | payer MEDICARE, BC | END 2018-01-28 17:06 | disposition critical access hospital (66) | LOC: EMS 17:05 | PROVIDERS: ATTEND Surgery | DX: R06.02 Shortness of breath (principal); R07.89 Other chest pain | CPT/HCPCS: A0425; A0429 ==

== ENCOUNTER 2018-01-28 17:23 | Emergency (ER) | payer MEDICARE, BC ==
[2018-01-28] MEDS ORDERED: FUROSEMIDE 100 MG/10 ML VIAL IVP STA (17:42)
--- NOTE | 2018-01-28 17:44 | ED Physician Documentation ---
PD HPI DYSPNEA - Stated complaint Stated Complaint: SOA - Chief complaint Chief Complaint: Resp - History obtained from History obtained from: Patient, EMS - History of Present Illness Timing - onset: Today (This is a nicole 82-year-old woman with history of end- stage renal disease currently on Thursday hemodialysis. She abruptly felt short of breath today while laying flat, feels better sitting up. She was hypoxic and brought here for further evaluation and treatment. She does have mild chest pressure with it and no increased pedal edema. Of note she had dialysis yesterday in the got to her goal weight. She has not been eating a low-salt diet though, she lives at a assisted living facility and they do not do individual diets. She had quite a bit of ham today. She had a very similar episode approximately 2 weeks ago with hypoxemia and felt better after her next dialysis run.) Review of Systems Constitutional: denies: Fever, Chills Cardiac: reports: Pedal edema (But not increased from her usual). denies: Palpitations, Calf pain Respiratory: reports: Dyspnea, Cough (dry). 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, Other - Present Medications Home Medications: Ambulatory Orders Medication Instructions Recorded Confirmed Furosemide [Lasix] 80 mg PO BID 04/05/13 06/23/17 Gabapentin 600 mg PO BID 06/05/16 06/23/17 Vit B Cmplx 3/FA/Vit C/Biotin 1 tab PO DAILY 06/23/17 06/23/17 [Winnie-Janeen Rx Tablet] Acetaminophen [Tylenol Extra 500 mg PO TID 12/21/17 12/21/17 Strength] Insulin Glargine [Lantus Solostar] 10 units SQ DAILY 12/21/17 12/21/17 Insulin Lispro [Humalog Kwikpen 3 units SQ TID 12/21/17 12/21/17 U-100] Sevelamer Carbonate 3 tab PO TID 12/21/17 12/21/17 Spironolactone 25 mg PO BID 12/21/17 12/21/17 oxyCODONE [Roxicodone] 5 mg PO Q4HR PRN 12/21/17 12/21/17 Allopurinol [Allopurinol] 1 tab PO DAILY 01/28/18 01/28/18 Doxycycline Monohydrate 1 cap PO BID 01/28/18 01/28/18 - Allergies Allergies/Adverse Reactions: Allergies Allergy/AdvReac Type Severity Reaction Status Date / Time amoxicillin Allergy Unknown Rash Verified 01/28/18 17:31 codeine Allergy Unknown Nausea Verified 01/28/18 17:31 hydrocodone Allergy Unknown Nausea Verified 01/28/18 17:31 Sulfa (Sulfonamide Allergy Unknown Rash Verified 01/28/18 17:31 Antibiotics) - Social History Does the pt smoke?: No Smoking Status: Never smoker Does the pt drink ETOH?: No Does the pt have substance abuse?: No - Immunizations Immunizations are current?: Yes - POLST Patient has POLST: No PD ED PE NORMAL - Vitals Vital signs reviewed: Yes - General General: Alert and oriented X 3, No acute distress - HEENT HEENT: PERRL, EOMI - Neck Neck: Supple, no meningeal sign, No bony TTP - Cardiac Cardiac: RRR, No murmur - Respiratory Respiratory: Other (Diminished at the bases significantly) - Abdomen Abdomen: Soft, Non tender - Extremities Extremities: Other (Symmetric large ankles, nontender) - Neuro Neuro: Alert and oriented X 3, Normal speech - Psych Psych: Normal mood, Normal affect Results - Vitals Vitals: Vital Signs - 24 hr 01/28/18 01/28/18 01/28/18 17:28 18:34 19:20 Temperature 36.7 C 36.3 C L Heart Rate 121 H 115 H 114 H Respiratory 20 20 23 Rate Blood Pressure 184/96 H 189/97 H 125/110 H O2 Saturation 89 L 91 L 96 Oxygen O2 Source Nasal cannula Oxygen Flow Rate 2 - EKG (time done) 1825 Rate: Rate (enter#) (117) Rhythm: Sinus tachycardia [place]: Normal Intervals: Other (LAFB) QRS: LVH, Poor R wave progression Compare to prior EKG: Unchanged from prior EKG (from 12/21/17) Computer interpretation: Agree with computer - Labs Labs: Laboratory Tests 01/28/18 01/28/18 01/28/18 18:00 18:00 18:00 WBC 7.0 RBC 4.14 L Hgb 13.0 Hct 40.7 MCV 98.2 MCH 31.3 H MCHC 31.8 L RDW 16.3 H Plt Count 300 MPV 7.4 L Neut # 5.1 Lymph # 0.9 L [place] # 0.8 Eos # 0.1 Baso # 0.1 Absolute Nucleated RBC 0.00 Nucleated RBC % 0.0 Sodium 139 Potassium 4.1 Chloride 99 L Carbon Dioxide 30 Anion Gap 10.0 BUN 22 H Creatinine 3.8 H Estimated GFR (MDRD) 11 L Glucose 157 H Calcium 9.3 Total Bilirubin 0.8 AST 18 ALT 16 Alkaline Phosphatase 99 Total Creatine Kinase 22 CK-MB (CK-2) 1.5 Troponin I 0.04 B-Natriuretic Peptide Total Protein 6.8 Albumin 3.7 Globulin 3.1 Albumin/Globulin Ratio 1.2 Lipase 33 01/28/18 18:00 WBC RBC Hgb Hct MCV MCH MCHC RDW Plt Count MPV Neut # Lymph # [place] # Eos # Baso # Absolute Nucleated RBC Nucleated RBC % Sodium Potassium Chloride Carbon Dioxide Anion Gap BUN Creatinine Estimated GFR (MDRD) Glucose Calcium Total Bilirubin AST ALT Alkaline Phosphatase Total Creatine Kinase CK-MB (CK-2) Troponin I B-Natriuretic Peptide 2092 H Total Protein Albumin Globulin Albumin/Globulin Ratio Lipase - Rads (name of study) 2v chest Radiology: EMP read contemporaneously (Mild diffuse bilateral interstitial hazy opacities slightly decreased compared to prior, could represent mild interstitial pulmonary edema, there is a small left pleural effusion of that appears decreased from the prior, cardiomegaly.) PD MEDICAL DECISION MAKING - ED course ED course: 82-year-old woman on chronic dialysis now presents with breathlessness and orthopnea and evidence of congestive heart failure. I spoke with her surface supervisor at [facility], Dr. Mac who recommended transfer to [place] for urgent dialysis. The hospitalist at [place] was paged at that time. Spoke with Dr Dunne at [facility] who accepts in er. Malena completed. Departure - Departure Disposition: 02 Transfer Acute Care Hosp Clinical Impression: Congestive heart failure Qualifiers: Heart failure type: high output Qualified Code(s): I50.83 - High output heart failure Chronic renal failure Qualifiers: Chronic kidney disease stage: stage 5 Qualified Code(s): N18.5 - Chronic kidney disease, stage 5 Condition: Serious
[2018-01-28 18:14] LABS: BASOPHILS # (AUTO) 0.1 10^3/uL (0.0-0.1); BASOPHILS % (AUTO) 1.3 %; EOSINOPHILS # (AUTO) 0.1 10^3/uL (0.0-0.7); EOSINOPHILS % (AUTO) 1.2 %; LYMPHOCYTES # (AUTO) 0.9 10^3/uL (1.5-3.5); LYMPHOCYTES % (AUTO) 12.8 %; MEAN CORPUSCULAR HEMOGLOBIN 31.3 pg (27.0-31.0); MEAN CORPUSCULAR HGB CONC 31.8 g/dL (32.0-36.0); MEAN CORPUSCULAR VOLUME 98.2 fL (81.0-99.0); MEAN PLATELET VOLUME 7.4 fL (7.9-10.8); MONOCYTES # (AUTO) 0.8 10^3/uL (0.0-1.0); NEUTROPHILS # (AUTO) 5.1 10^3/uL (1.5-6.6); NEUTROPHILS % (AUTO) 72.7 %; PLT - PLATELET COUNT 300 10^3/uL (130-450); RED BLOOD COUNT 4.14 10^6/uL (4.20-5.40); RED CELL DISTRIBUTION WIDTH 16.3 % (12.0-15.0)
[2018-01-28 18:30] LABS: ALBUMIN 3.7 g/dL (3.2-5.5); ALBUMIN/GLOBULIN RATIO 1.2 (1.0-2.2); BILIRUBIN,TOTAL 0.8 mg/dL (0.2-1.0); CALCIUM 9.3 mg/dL (8.5-10.3); CREATININE 3.8 mg/dL (0.4-1.0); TOTAL PROTEIN 6.8 g/dL (6.7-8.2)
--- NOTE | 2018-01-28 18:33 | XRAY Preliminary Report ---
Exam: XR CHEST 2 VIEW X-RAY IMPRESSION: Mild diffuse bilateral interstitial hazy opacities in the lungs, slightly decreased sanket red to prior, could represent mild interstitial pulmonary edema. Small left pleural effusion, appears decreased from the prior. Cardiomegaly. [facility] SITE ID: [id number]
[2018-01-28 18:34] LABS: TROPONIN I 0.04 ng/mL (<0.49)
--- NOTE | 2018-01-28 18:34 | XRAY Report ---
EXAM: CHEST RADIOGRAPHY EXAM DATE: 01/28/2018 06:07 PM. CLINICAL HISTORY: Dyspnea. COMPARISON: Chest 12/21/2017. TECHNIQUE: 2 views. FINDINGS: Stable cardiomegaly. Right hemodialysis catheter with the tip at the superior vena cava/rig ht atrial junction. Mild diffuse bilateral interstitial hazy opacities in the lungs, slightly decreas ed compared to prior, could represent mild interstitial pulmonary edema. Small left pleural effusion, appears decreased from the prior. No pneumothorax. IMPRESSION: Mild diffuse bilateral interstitial hazy opacities in the lungs, slightly decreased [place] red to prior, could represent mild interstitial pulmonary edema. Small left pleural effusion, appears decreased from the prior. Cardiomegaly. [facility] Referring Provider Line: [phone] SITE ID: [id number]
[2018-01-28 18:36] LABS: CREATINE KINASE MB 1.5 ng/mL (0.6-6.3)
[2018-01-28] MEDS ORDERED: ACETAMINOPHEN 325 MG TABLET PO STA (21:07)
[2018-01-28 21:53] VITALS: BP 160/95
== END 2018-01-28 22:00 | disposition short-term general hospital (02) ==
LOC: EDUNIT# → ED 17:23
DX: I50.83 High output heart failure (principal); E11.22 Type 2 diabetes mellitus with diabetic chronic kidney disease; I13.2 Hypertensive heart and chronic kidney disease with heart failure and with stage 5 chronic kidney disease, or end stage renal disease; N18.6 End stage renal disease; Z99.2 Dependence on renal dialysis; Z79.4 Long term (current) use of insulin; E78.00 Pure hypercholesterolemia, unspecified; M10.9 Gout, unspecified; M19.90 Unspecified osteoarthritis, unspecified site; M81.0 Age-related osteoporosis without current pathological fracture
CPT/HCPCS: 36415; 71046; 80053; 82550; 82553; 83690; 83880; 84484; 85025; 93005; 96374; 99284; 99285; A9270; J1940

== ENCOUNTER 2018-01-28 22:01 | Outpatient (CLI) | payer MEDICARE, BC | END 2018-01-28 22:02 | disposition short-term general hospital (02) | LOC: EMS 22:01 | PROVIDERS: ATTEND Surgery | DX: N18.6 End stage renal disease (principal); I50.9 Heart failure, unspecified | CPT/HCPCS: A0170; A0425; A0428 ==

== ENCOUNTER 2018-02-08 10:22 | Outpatient (CLI) | payer MEDICARE, BC ==
[2018-02-08 13:35] LABS: BASOPHILS # (AUTO) 0.1 10^3/uL (0.0-0.1); BASOPHILS % (AUTO) 1.3 %; EOSINOPHILS # (AUTO) 0.2 10^3/uL (0.0-0.7); EOSINOPHILS % (AUTO) 2.6 %; HGB - HEMOGLOBIN 12.3 g/dL (12.0-16.0); LYMPHOCYTES # (AUTO) 1.2 10^3/uL (1.5-3.5); LYMPHOCYTES % (AUTO) 16.2 %; MEAN CORPUSCULAR HEMOGLOBIN 32.4 pg (27.0-31.0); MEAN CORPUSCULAR HGB CONC 32.5 g/dL (32.0-36.0); MEAN CORPUSCULAR VOLUME 99.7 fL (81.0-99.0); MEAN PLATELET VOLUME 7.8 fL (7.9-10.8); MONOCYTES # (AUTO) 0.8 10^3/uL (0.0-1.0); MONOCYTES % (AUTO) 11.2 %; NEUTROPHILS # (AUTO) 4.9 10^3/uL (1.5-6.6); NEUTROPHILS % (AUTO) 68.7 %; PLT - PLATELET COUNT 326 10^3/uL (130-450); RED BLOOD COUNT 3.81 10^6/uL (4.20-5.40); RED CELL DISTRIBUTION WIDTH 15.9 % (12.0-15.0); WHITE BLOOD COUNT 7.2 x10^3/uL (4.8-10.8)
[2018-02-08 13:59] LABS: HB2 TOTAL 13.5 g/dL; HEMOGLOBIN A1C 0.46 g/dL; HEMOGLOBIN A1C % 5.3 % (4.6-6.2)
[2018-02-08 14:12] LABS: ALBUMIN 3.6 g/dL (3.2-5.5); ALKALINE PHOSPHATASE 99 IU/L (42-121); ALT ALANINE AMINOTRANSFERASE 19 IU/L (10-60); AST ASPARTATE AMINOTRANSFERASE 20 IU/L (10-42); BILIRUBIN,TOTAL 0.4 mg/dL (0.2-1.0); BUN - BLOOD UREA NITROGEN 41 mg/dL (6-20); CALCIUM 9.9 mg/dL (8.5-10.3); CARBON DIOXIDE - CO2 26 mmol/L (21-32); CHLORIDE 93 mmol/L (101-111); CHOL/HDL RATIO 2.8 (<4.4); CHOLESTEROL 147 mg/dL; CREATININE 6.9 mg/dL (0.4-1.0); GFR - MDRD 6 (>89); GLUCOSE 190 mg/dL (70-100); HDL CHOLESTEROL 53 mg/dL; LDL CHOLESTEROL,CALCULATED 36 mg/dL; LDL/HDL RATIO 0.7 (<4.4); SODIUM 133 mmol/L (135-145); TOTAL PROTEIN 7.1 g/dL (6.7-8.2); VLDL CHOLESTEROL 58 mg/dL
== END 2018-02-08 10:23 | disposition home or self-care (01) ==
LOC: LAB.WCP 10:22
PROVIDERS: ATTEND Family Medicine
DX: E78.5 Hyperlipidemia, unspecified (principal); E11.29 Type 2 diabetes mellitus with other diabetic kidney complication; I10 Essential (primary) hypertension
CPT/HCPCS: 36415; 80053; 80061; 82043; 83036; 83721; 85025

== ENCOUNTER 2018-02-09 08:00 | Outpatient (CLI) | payer MEDICARE, BC | END 2018-02-09 08:01 | disposition home or self-care (01) | LOC: LAB.WCP 08:00 | PROVIDERS: ATTEND Family Medicine | DX: E11.29 Type 2 diabetes mellitus with other diabetic kidney complication (principal) | CPT/HCPCS: 82043 ==

== ENCOUNTER 2018-05-19 01:03 | Outpatient (CLI) | payer MEDICARE, BC | END 2018-05-19 01:04 | disposition critical access hospital (66) | LOC: EMS 01:03 | PROVIDERS: ATTEND Surgery | DX: S01.01XA Laceration without foreign body of scalp, initial encounter (principal); W01.198A Fall on same level from slipping, tripping and stumbling with subsequent striking against other object, initial encounter; Y93.01 Activity, walking, marching and hiking; Y92.099 Unspecified place in other non-institutional residence as the place of occurrence of the external cause | CPT/HCPCS: A0425; A0429 ==

== ENCOUNTER 2018-05-19 01:20 | Emergency (ER) | payer MEDICARE, BC ==
--- NOTE | 2018-05-19 01:44 | ED Physician Documentation ---
PD HPI HEAD INJURY - Stated complaint Stated Complaint: FELL - DIZZY, APONTE,FOREHEAD LAC - Chief complaint Chief Complaint: Neuro - History obtained from History obtained from: Patient - History of Present Illness Mechanism of head injury: Fell Where head injury occurred: Home Pain level now: 0 Associated symptoms: No: LOC, AMS, Amnesia, Nausea / vomiting, Neck pain Contributing factors: No: Anticoagulated, Intoxicated Recently seen: Surgery (PD catheter removed yesterday; RUE fistula surgery) - Additional information Additional information: patient was to have scheduled dressing changes of abdominal dressings (PD catheter removed yesterday); upon standing and starting to ambulate, she fell and struck her head on the floor. She isn't certain as to why she fell, but she thinks it was due to misstep. denies LOC, denies APONTE (mild pain localized to site of head injury, right frontoparietal scalp where she sustained a laceration). Review of Systems Constitutional: denies: Fever Eyes: reports: Reviewed and negative Cardiac: reports: Reviewed and negative Respiratory: reports: Reviewed and negative GI: reports: Reviewed and negative Musculoskeletal: reports: Extremity pain (RUE post-operative pain (fistula), but no worse than before she fell), Extremity swelling (RUE post-operative swelling and bruising (fistula)) Neurologic: reports: Head injury. 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, Other - Present Medications Home Medications: Ambulatory Orders Medication Instructions Recorded Confirmed Furosemide [Lasix] 80 mg PO BID 04/05/13 05/19/18 Gabapentin 300 mg PO DAILY 06/05/16 05/19/18 Vit B Comp No.3/Folic/C/Biotin 1 tab PO QPM 06/23/17 05/19/18 [Winnie-Janeen Rx Tablet] Acetaminophen [Tylenol Extra 500 mg PO TID 12/21/17 05/19/18 Strength] Insulin Glargine [Lantus Solostar] 5 units SQ QPM 12/21/17 05/19/18 Insulin Lispro [Humalog Kwikpen 3 units SQ TID 12/21/17 05/19/18 U-100] Sevelamer Carbonate 3 tab PO TID 12/21/17 05/19/18 Spironolactone 25 mg PO BID 12/21/17 05/19/18 oxyCODONE [Roxicodone] 5 mg PO Q4HR PRN 12/21/17 05/19/18 Allopurinol 2 tab PO DAILY 01/28/18 05/19/18 Metoprolol Succinate 25 mg PO DAILY 05/19/18 05/19/18 - Allergies Allergies/Adverse Reactions: Allergies Allergy/AdvReac Type Severity Reaction Status Date / Time amoxicillin Allergy Unknown Rash Verified 05/19/18 01:27 codeine Allergy Unknown Nausea Verified 05/19/18 01:27 hydrocodone Allergy Unknown Nausea Verified 05/19/18 01:27 Sulfa (Sulfonamide Allergy Unknown Rash Verified 05/19/18 01:27 Antibiotics) - Social History Does the pt smoke?: No Smoking Status: Never smoker Does the pt drink ETOH?: No Does the pt have substance abuse?: No - Immunizations Immunizations are current?: Yes - POLST Patient has POLST: No PD ED PE NORMAL - Vitals Vital signs reviewed: Yes - General General: Alert and oriented X 3, No acute distress, Well developed/nourished - HEENT HEENT: PERRL, EOMI, Moist mucous membranes - Neck Neck: No bony TTP - Abdomen Abdomen: Soft, Non tender, Other (two small dressings on abdominal wall are clean and dry (2x2 gauze under tegaderm dressings)) - Extremities Extremities: Other (RUE fistula with strong palpable thrill; dressing removed over RUE vascular surgical site (fistula); the wound is C/D/I with surrounding echymosis (appropriate to recent procedure) and trace blood noted on bandage that appears recent but no active bleeding noted. 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, No motor deficit, No sensory deficit, Normal speech Eye Opening: Spontaneous Motor: Obeys Commands Verbal: Oriented GCS Score: 15 PD ED PE EXPANDED - HEENT HEENT Visual: 1 - laceration (3 cm length) Results - Vitals Vitals: Oxygen O2 Source Room air Oxygen Flow Rate 2 - EKG (time done) No standard instances Rate: Rate (enter#) (89) Rhythm: NSR, LAE [place]: LAD, Anterior hemiblock Intervals: Prolonged NV QRS: LVH, Poor R wave progression Ischemia: Q waves (V1, V2) Compare to prior EKG: Unchanged from prior EKG Procedures - Laceration (location) Scalp right Length in cm: 3 Wound type: Linear Anesthesia: Lidocaine 1% Wound Preparation: Betadine Skin layer closure: [place] Other: Patient tolerated well, No complications, Tetanus UTD Complexity: Simple PD MEDICAL DECISION MAKING - ED course Complexity details: considered differential, d/w patient - Sepsis Event Vital Signs: Oxygen O2 Source Room air Oxygen Flow Rate 2 Departure - Departure Disposition: 01 Home, Self Care Clinical Impression: Laceration Head injury Qualifiers: Encounter type: initial encounter Qualified Code(s): S09.90XA - Unspecified injury of head, initial encounter Condition: Good Instructions: ED Laceration Scalp Stitch Or Stap Follow-Up: Matidle Churchill MD [Provider Admit Priv/Credential] - (Follow up with your primary care provider in 7-8 days for removal of the maksim) Discharge Date/Time: 05/19/18 03:35
[2018-05-19] MEDS ORDERED: LIDOCAINE 1% 2 ML VIAL SUBQ STA (02:10)
[2018-05-19] MEDS ORDERED: BACITRACIN OINT TOP ONE (03:19)
[2018-05-19] MEDS ORDERED: BACITRACIN OINT TOP STA (03:20)
[2018-05-19 03:30] VITALS: BP 106/69
== END 2018-05-19 03:35 | disposition home or self-care (01) ==
LOC: EDUNIT# → EDBD → ED 01:20
DX: S01.01XA Laceration without foreign body of scalp, initial encounter (principal); S09.90XA Unspecified injury of head, initial encounter; W18.30XA Fall on same level, unspecified, initial encounter; I45.81 Long QT syndrome; I44.4 Left anterior fascicular block; I10 Essential (primary) hypertension; E78.00 Pure hypercholesterolemia, unspecified; E11.9 Type 2 diabetes mellitus without complications; Z79.4 Long term (current) use of insulin
CPT/HCPCS: 12002; 93005; 99283; 99285; A9270

== ENCOUNTER 2018-07-15 09:02 | Outpatient (CLI) | payer MEDICARE, BC ==
--- NOTE | 2018-07-16 12:44 | Mammography Report ---
Reason: SCREENING MAMMO Procedure Date: 07/15/2018 Accession Number: [id number] / [id number] Procedure: [facility] - Screening Mammo w/Deniz CPT Code: FULL RESULT: EXAM: Screening Mammo w/Deniz DATE: 07/15/2018 11:24 AM CLINICAL HISTORY: 82-year-old female with history of right breast cancer status post lumpectomy and radiation therapy in 2000 for screening. TECHNIQUE: Bilateral CC and MLO views were obtained. COMPARISON: 06/29/2017, 06/17/2016, 06/11/2015, 06/23/2014. FINDINGS: The breasts demonstrate scattered fibroglandular densities bilaterally. Posttreatment changes are seen in the right breast. Typically benign vascular calcifications are identified in the left breast. No suspicious masses, clustered microcalcifications, or regions of architectural distortion are identified. IMPRESSION: Benign findings RECOMMENDATION: Routine annual screening unless otherwise clinically indicated. BIRADS CATEGORY 2: Benign findings STANDARD QUALIFYING STATEMENTS: 1. This examination was not reviewed with the aid of Computer-Aided Detection (CAD). 2. A negative or benign imaging report should not delay biopsy if clinically suspicious findings are present. Consider surgical consultation if warranted. More than 5% of cancers are not identified by imaging. 3. Dense breasts may obscure an underlying neoplasm. 4. This examination was reviewed with the aid of 3D breast imaging (tomosynthesis).
== END 2018-07-15 09:03 | disposition home or self-care (01) ==
LOC: DI 09:02
DX: Z12.31 Encounter for screening mammogram for malignant neoplasm of breast (principal); Z08 Encounter for follow-up examination after completed treatment for malignant neoplasm; Z85.3 Personal history of malignant neoplasm of breast
CPT/HCPCS: 77063; 77067

== ENCOUNTER 2018-08-10 13:54 | Outpatient (CLI) | payer MEDICARE, BC ==
--- NOTE | 2018-08-11 09:58 | Ultrasound Report ---
Reason: SUBCUTANEOUS NODULE OF CHEST WALL Procedure Date: 08/10/2018 Accession Number: [id number] / [id number] Procedure: US - Chest CPT Code: FULL RESULT: EXAM: SOFT TISSUE ULTRASOUND LIMITED EXAM DATE: 08/10/2018 02:42 PM. CLINICAL HISTORY: Subcutaneous nodule of chest wall. COMPARISON: None. TECHNIQUE: Real-time scanning was performed with static images obtained. FINDINGS: Grayscale and limited color Doppler images of the abdominal/chest wall inferior to the sternum were obtained. This demonstrates a heterogeneous relatively hypoechoic well-demarcated mass-like structure measuring 1.4 x 0.7 cm emanating from the deep soft tissues. The finding is nonspecific but degenerative changes in the costochondral junction region can often have this appearance. No abnormal vascularity to suggest intense inflammation. No fluid collection. IMPRESSION: The mass-like finding likely represents nodular component of costochondral junction. RADIA
== END 2018-08-10 13:55 | disposition home or self-care (01) ==
LOC: DI 13:54
PROVIDERS: ATTEND Family Medicine
DX: R22.2 Localized swelling, mass and lump, trunk (principal)
CPT/HCPCS: 76604

== ENCOUNTER 2018-11-04 08:10 | Outpatient (CLI) | payer MEDICARE, BC | END 2018-11-04 08:11 | disposition home or self-care (01) | LOC: LAB.WCP 08:10 | PROVIDERS: ATTEND Family Medicine | DX: E11.29 Type 2 diabetes mellitus with other diabetic kidney complication (principal); N19 Unspecified kidney failure; E78.5 Hyperlipidemia, unspecified | CPT/HCPCS: 36415; 80053; 80061; 83036; 83721; 85025 ==

== ENCOUNTER 2018-11-09 08:00 | Outpatient (CLI) | payer MEDICARE, BC ==
[2018-11-09 13:07] LABS: CHOL/HDL RATIO 1.9 (<4.4); CHOLESTEROL 117 mg/dL; HDL CHOLESTEROL 63 mg/dL; LDL CHOLESTEROL,CALCULATED 32 mg/dL; LDL/HDL RATIO 0.5 (<4.4); VLDL CHOLESTEROL 22 mg/dL
[2018-11-09 13:19] LABS: HB2 TOTAL 11.5 g/dL; HEMOGLOBIN A1C 0.46 g/dL; HEMOGLOBIN A1C % 5.8 % (4.6-6.2)
== END 2018-11-09 23:59 | disposition home or self-care (01) ==
LOC: LAB.WCP 08:00
PROVIDERS: ATTEND Family Medicine
DX: E78.5 Hyperlipidemia, unspecified (principal); E11.29 Type 2 diabetes mellitus with other diabetic kidney complication
CPT/HCPCS: 36415; 80061; 83036; 83721

== ENCOUNTER 2019-07-15 09:09 | Outpatient (CLI) | payer MEDICARE, BC ==
--- NOTE | 2019-07-15 15:21 | Mammography Report ---
Reason: ROUTINE MAMMO Procedure Date: 07/15/2019 Accession Number: [id number] / [id number] Procedure: [facility] - Screening Mammo Dig Bilat CPT Code: Final Report FULL RESULT: EXAM: Screening Mammo Dig Bilat DATE: 07/15/2019 9:43 AM CLINICAL HISTORY: Routine screening. History of prior treated right breast cancer status post lumpectomy and radiation in 2000. TECHNIQUE: (B) - Bilateral CC and MLO views were obtained. COMPARISON: 04/14/2018 through 06/11/2015. PARENCHYMAL PATTERN: (A) - The breasts demonstrate scattered fibroglandular densities bilaterally. FINDINGS: Bilateral breasts: Stable lumpectomy changes from the posterior lower inner right breast. There are no suspicious masses, calcifications, or areas of nonoperative distortion. IMPRESSION: Benign findings. BI-RADS category 2. RECOMMENDATION: (ANNUAL) - Recommend routine annual screening mammography. BI-RADS CATEGORY: (2) - Benign Findings. STANDARD QUALIFYING STATEMENTS: 1. This examination was not reviewed with the aid of Computer-Aided Detection (CAD). 2. A negative or benign imaging report should not preclude biopsy if clinically suspicious findings are present. 3. Dense breasts may obscure an underlying neoplasm. 4. This examination was reviewed without the aid of 3D breast imaging (tomosynthesis).
== END 2019-07-15 09:10 | disposition home or self-care (01) ==
LOC: DI.N 09:09
DX: Z12.31 Encounter for screening mammogram for malignant neoplasm of breast (principal); Z85.3 Personal history of malignant neoplasm of breast
CPT/HCPCS: 77067

== ENCOUNTER 2020-01-26 12:53 | Outpatient (CLI) | payer MEDICARE, BC ==
--- NOTE | 2020-01-26 15:49 | MRI Report ---
Reason: RIGHT KNEE PAIN Procedure Date: 01/26/2020 Accession Number: [id number] / [id number] Procedure: MRI - Knee RT W/O CPT Code: Final Report FULL RESULT: EXAM: RIGHT KNEE MRI WITHOUT CONTRAST EXAM DATE: 01/26/2020 01:58 PM. CLINICAL HISTORY: Right knee pain after fall 6 weeks ago. COMPARISON: None. TECHNIQUE: Multiplanar, multisequence T1-weighted and fluid-sensitive sequences of the knee without contrast. Other: None. FINDINGS: Bones and articular cartilage: There is a nondisplaced, nondepressed, subacute appearing fracture at the posterior aspect of the medial tibial plateau. Marginal osteophytes of the femoral condyles and tibial plateau and patella. Grade II-III chondromalacia at the medial femoral condyle. Grade II chondromalacia of the medial tibial plateau. Focal full-thickness articular cartilage fissure, subchondral osteophytes, and marrow edema at the mid aspect of the lateral femoral condyle. No discrete osteochondral fragment is seen. Grade III-IV chondromalacia of the patella and femoral trochlea. No subluxations. Enthesophytes at the anterior superior aspect of the patella. Medial Meniscus: Free edge fraying of the medial meniscus. No definite tear. Lateral Meniscus: Free edge fraying at the posterior horn. No definite tear. Cruciate Ligaments: The anterior and posterior cruciate ligaments are intact. Collateral Ligaments: The medial collateral and lateral collateral ligamentous structures are intact. Tendons: The quadriceps, patellar, semimembranosus, and popliteus tendons are unremarkable. Musculature: No edema or fatty atrophy. Other: Very small joint effusion. No popliteal cyst. No loose bodies. The medial and lateral retinacula are intact. The subcutaneous tissues and fat pads are unremarkable. IMPRESSION: 1. Nondisplaced, nondepressed, subacute fracture at the posterior aspect of the medial tibial plateau. 2. Tricompartmental osteoarthritis. 3.Free edge fraying of the medial meniscus and at the posterior or lateral meniscus. No definite meniscal tear is seen. 4.No ligament tear. 5.Very small joint effusion. RADIA The call report notification system was initiated by Dr. Sandoval Jiménez at 02:36 PM on 01/26/2020. The above call report findings were discussed with Aarti Wilkes by Dr. Sandoval Jiménez at 03:48 PM on 01/26/2020.
== END 2020-01-26 12:54 | disposition home or self-care (01) ==
LOC: DI 12:53
PROVIDERS: ATTEND Nurse Practitioner Gerontology
DX: S82.144A Nondisplaced bicondylar fracture of right tibia, initial encounter for closed fracture (principal); M17.11 Unilateral primary osteoarthritis, right knee; M25.461 Effusion, right knee

== ENCOUNTER 2020-01-27 17:53 | Outpatient (CLI) | payer MEDICARE, BC | END 2020-01-27 17:54 | disposition critical access hospital (66) | LOC: EMS 17:53 | PROVIDERS: ATTEND Surgery | DX: M25.561 Pain in right knee (principal); M25.572 Pain in left ankle and joints of left foot; V00.891A Fall from other pedestrian conveyance, initial encounter; Y93.A1 Activity, exercise machines primarily for cardiorespiratory conditioning | CPT/HCPCS: A0425; A0429 ==

== ENCOUNTER 2020-01-27 18:09 | Emergency (ER) | payer MEDICARE, BC ==
--- NOTE | 2020-01-27 19:06 | ED Physician Documentation ---
PD HPI LOWER EXT INJURY - Stated complaint Stated Complaint: fell, Rt knee pain/left ankle - Chief complaint Chief Complaint: Ext Problem - History obtained from History obtained from: Patient, EMS - History of Present Illness PD HPI LOW EXT INJURY LOCATION: Right (knee, ankle), Left (ankle) Type of injury: Fall Where injury occurred: Home Timing - details: Abrupt onset Pain level max: 6 Pain level now: 4 Improved by: Rest Worsened by: Moving, Palpating Associated symptoms: Swelling. No: Weakness, Numbness, Tingling Recently seen: Not recently seen - Additional information Additional information: 84-year-old female on dialysis Thursday, Thursday, Thursday. She was walking on a treadmill today when she states that the treadmill sped up, she lost her balance and fell injuring her bilateral ankles and her right knee. Had an MRI yesterday that shows a subacute tibial plateau fracture. No head injury. no neck or back pain. worse with movement and better with rest. Review of Systems Constitutional: denies: Fever, Chills Respiratory: denies: Cough GI: denies: Nausea, Vomiting, Diarrhea Skin: denies: Rash Musculoskeletal: denies: Neck pain, Back pain PD PAST MEDICAL HISTORY - Past Medical History Past Medical History: Yes Cardiovascular: Hypertension, High cholesterol, Murmur Respiratory: Shortness of breath Endocrine/Autoimmune: Type 2 diabetes GI: None : Dialysis, Renal insuffiency HEENT: Chronic vision loss Psych: None Musculoskeletal: Osteoarthritis, Osteoporosis, Osteopenia, Gout, Chronic back pain Derm: Other - Past Surgical History Past Surgical History: Yes 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, Other - Present Medications Home Medications: Ambulatory Orders Medication Instructions Recorded Confirmed Gabapentin 300 mg PO DAILY 06/05/16 05/19/18 Vit B Comp No.3/Folic/C/Biotin 1 tab PO QPM 06/23/17 05/19/18 [Winnie-Janeen Rx Tablet] Acetaminophen [Tylenol Extra 500 mg PO TID 12/21/17 05/19/18 Strength] oxyCODONE [Roxicodone] 5 mg PO Q4HR PRN 12/21/17 05/19/18 allopurinoL [Allopurinol] 2 tab PO DAILY 01/28/18 05/19/18 Metoprolol Succinate 25 mg PO DAILY 09/19/18 09/19/18 Aspirin [Adult Aspirin Regimen] 81 mg PO DAILY 01/27/20 01/27/20 Ferric Citrate [Auryxia] 2 tab AC 01/27/20 01/27/20 Fluticasone [Flonase] 1 spray BID 01/27/20 01/27/20 - Allergies Allergies/Adverse Reactions: Allergies Allergy/AdvReac Type Severity Reaction Status Date / Time amoxicillin Allergy Unknown Rash Verified 01/27/20 18:21 codeine Allergy Unknown Nausea Verified 01/27/20 18:21 hydrocodone Allergy Unknown Nausea Verified 01/27/20 18:21 Sulfa (Sulfonamide Allergy Unknown Rash Verified 01/27/20 18:21 Antibiotics) - Social History Does the pt smoke?: No Smoking Status: Never smoker Does the pt drink ETOH?: No Does the pt have substance abuse?: No - Immunizations Immunizations are current?: Yes - POLST Patient has POLST: No PD ED PE NORMAL - Vitals Vital signs reviewed: Yes - General General: Alert and oriented X 3, No acute distress - HEENT HEENT: Atraumatic, PERRL, Moist mucous membranes - Neck Neck: Supple, no meningeal sign, No bony TTP - Cardiac Cardiac: RRR - Respiratory Respiratory: No respiratory distress, Clear bilaterally - Abdomen Abdomen: Soft, Non tender, Non distended - Back Back: No spinal TTP - Derm Derm: Warm and dry - Extremities Extremities: Other (Mild bruising to the bilateral ankles. No deformity. Neurovascular intact. Mild tenderness bilaterally diffusely. She is also mildly tender over the anterior aspect of the right knee. Mild effusion. Neurovascular intact. 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, No motor deficit, No sensory deficit, Normal speech Eye Opening: Spontaneous Motor: Obeys Commands Verbal: Oriented GCS Score: 15 - Psych Psych: Normal mood, Normal affect Results - Vitals Vitals: Vital Signs - 24 hr 01/27/20 01/27/20 01/27/20 18:11 20:00 20:55 Temperature 36.5 C Heart Rate 92 83 95 Respiratory 18 17 17 Rate Blood Pressure 108/89 H 96/64 O2 Saturation 92 99 01/27/20 01/27/20 21:21 21:24 Temperature Heart Rate Respiratory 17 16 Rate Blood Pressure 106/67 O2 Saturation Oxygen O2 Source Room air - Rads (name of study) Bilateral ankle x-ray Radiology: Prelim report reviewed, EMP read contemporaneously, See rad report (No acute abnormality) Right knee CT Radiology: Prelim report reviewed, EMP read contemporaneously, See rad report PD MEDICAL DECISION MAKING - ED course Complexity details: reviewed results, re-evaluated patient, considered differential, d/w patient, 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 Laguerre, orthopedics. He states that if she would like a brace, she can use an articulating knee brace or knee immobilizer, however if she does not want a brace, she can gently weight- bear on the leg and use a walker. Patient elects to use a walker and does not want a brace. She is ambulating well. Patient is well-appearing, nontoxic. Afebrile. No evidence of head injury, neck or back injury. Patient counseled regarding signs and symptoms for which I believe and urgent re-evaluation would be necessary. Patient with good understanding of and agreement to plan and is comfortable going home at this time This document was made in part using voice recognition software. While efforts are made to proofread this document, sound alike and grammatical errors may occur. Departure - Departure Disposition: 01 Home, Self Care Clinical Impression: Tibial plateau fracture, right Qualifiers: Encounter type: initial encounter Fracture type: closed Qualified Code(s): S82.141A - Displaced bicondylar fracture of right tibia, initial encounter for closed fracture Ankle bruise Qualifiers: Encounter type: initial encounter Laterality: unspecified laterality Qualified Code(s): S90.00XA - Contusion of unspecified ankle, initial encounter Condition: Good Instructions: ED Fx Knee Follow-Up: RONNIE FRANZ ARNP [Primary Care Provider] - Baltazar Laguerre MD [Provider Admit Priv/Credential] - Within 1 week Comments: You need to use a walker at all times. Be cautious with the right leg. Return if you worsen. You have chosen not to wear a brace tonight. 1. Moderate patellar recess lipohemarthrosis consistent with intra-articular fracture has developed since the MRI 01/26/2020. 2. Acute nondisplaced comminuted fracture mid posterior tibia at the insertion of the PCL measuring 2.1 cm in transverse dimension and 2 cm in AP dimension. 3. Negative for discrete fracture posterior aspect medial tibial plateau to correspond with bone bruise or nondisplaced fracture with marrow edema posterior aspect medial tibial plateau on the MRI knee 01/18/2020. 4. Moderate osteoarthritis tibiofemoral compartment. Kellgren Aldair grade 2. 5. 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 Discharge Date/Time: 01/27/20 22:04
--- NOTE | 2020-01-27 19:52 | XRAY Report ---
Reason: fall, B ankle pain Procedure Date: 01/27/2020 Accession Number: [id number] / [id number] Procedure: XR - Ankle 3 View BILAT CPT Code: Final Report FULL RESULT: EXAMS: 1. Right Ankle Radiography 2. Left Ankle Radiography EXAM DATE: 01/27/2020 07:38 PM. CLINICAL HISTORY: Fall, bilateral ankle pain. COMPARISON: LOWER EXTREMITY RIGHT W/O 04/15/2017 8:53 AM. TECHNIQUE: 3 views each ankle. FINDINGS: Right Ankle: Bones: Normal. No fractures or bone lesions. Joints: Degenerative changes involving the ankle and tarsal joints. Soft Tissues: Diffuse soft tissue swelling with widespread calcifications likely due to chronic venous stasis. Left Ankle: Bones: Normal. No fractures or bone lesions. Joints: Ankle and midfoot degenerative changes. Soft Tissues: Diffuse soft tissue swelling and calcifications. IMPRESSION: 1. No evidence of bilateral ankle fractures. 2. Bilateral ankle and midfoot degenerative changes. 3. Diffuse soft tissue swelling and calcifications likely secondary to chronic venous stasis. RADIA
--- NOTE | 2020-01-27 21:00 | CT Report ---
Reason: fall today, R knee px. tib plateau fx 6 weeks ago Procedure Date: 01/27/2020 Accession Number: [id number] / [id number] Procedure: CT - LOWER EXTREMITY WO - RT CPT Code: Final Report FULL RESULT: EXAM: RIGHT KNEE CT WITHOUT CONTRAST EXAM DATE: 01/27/2020 07:24 PM. CLINICAL HISTORY: Fall today, R knee px. Tibial plateau fx 6 weeks ago. COMPARISON: LOWER EXTREMITY RIGHT W/O 04/15/2017 8:53 AM KNEE RT W/O 01/26/2020 1:13 PM. TECHNIQUE: Thin-section axial images were acquired of the knee without contrast. Post-processing: Coronal and sagittal reformats. Other: None. In accordance with CT protocol optimization, one or more of the following dose reduction techniques were utilized for this exam: automated exposure control, adjustment of mA and/or KV based on patient size, or use of iterative reconstructive technique. FINDINGS: Bones: 1. Nondisplaced fracture of indeterminate age mid posterior proximal tibia 2.1 cm in transverse dimension and 2.0 cm in AP dimension (image 92 series 6 and image 92 series 7). Nondisplaced healing fracture corresponds to the insertion of the PCL. Associated 5 mm displaced small cortical fracture fragments (sees image 99 series 12). 2. Nondisplaced subacute fracture with marrow edema posterior aspect medial tibial plateau is best delineated on the MRI with no discrete cortical disruption identified on the CT. 3. Mild spurring medial lateral femoral condyles. 4. Negative for patellar fracture. 5. Subcortical rarefaction mid lateral femoral condyle corresponds to the sub-cortical marrow edema with cortical irregularity and no discrete osteochondral fragment MRI 01/18/2020. Joints: Tibiofemoral compartment chondrocalcinosis. Moderate patellar recess lipohemarthrosis consistent with intra-articular fracture. Musculature: Normal. No fatty atrophy. Other: No Bakers cyst. No soft tissue swelling. IMPRESSION: 1. Moderate patellar recess lipohemarthrosis consistent with intra-articular fracture has developed since the MRI 01/26/2020. 2. Acute nondisplaced comminuted fracture mid posterior tibia at the insertion of the PCL measuring 2.1 cm in transverse dimension and 2 cm in AP dimension. 3. Negative for discrete fracture posterior aspect medial tibial plateau to correspond with bone bruise or nondisplaced fracture with marrow edema posterior aspect medial tibial plateau on the MRI knee 01/18/2020. 4. Moderate osteoarthritis tibiofemoral compartment. Kellgren Aldair grade 2. 5. 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 RADIA
[2020-01-27 21:23] VITALS: BP 106/67
== END 2020-01-27 22:04 | disposition home or self-care (01) ==
LOC: EDUNIT# → ED 18:09
DX: S82.141A Displaced bicondylar fracture of right tibia, initial encounter for closed fracture (principal); S90.01XA Contusion of right ankle, initial encounter; S90.02XA Contusion of left ankle, initial encounter; V00.891A Fall from other pedestrian conveyance, initial encounter; Y93.A1 Activity, exercise machines primarily for cardiorespiratory conditioning; Y92.009 Unspecified place in unspecified non-institutional (private) residence as the place of occurrence of the external cause; I10 Essential (primary) hypertension; E11.9 Type 2 diabetes mellitus without complications; Z99.2 Dependence on renal dialysis; Z79.82 Long term (current) use of aspirin
CPT/HCPCS: 99284

== ENCOUNTER 2020-07-01 09:01 | Outpatient (CLI) | payer MEDICARE, BC | END 2020-07-01 09:02 | disposition critical access hospital (66) | LOC: EMS 09:01 | PROVIDERS: ATTEND Surgery | DX: S09.90XA Unspecified injury of head, initial encounter (principal); M25.572 Pain in left ankle and joints of left foot; M79.661 Pain in right lower leg; W19.XXXA Unspecified fall, initial encounter; Y92.199 Unspecified place in other specified residential institution as the place of occurrence of the external cause | CPT/HCPCS: A0425; A0429 ==

== ENCOUNTER 2020-07-01 09:28 | Emergency (ER) | payer MEDICARE, BC ==
[2020-07-01] MEDS ORDERED: IOVERSOL 320 100 ML VIAL IVP ONE (10:13)
--- NOTE | 2020-07-01 11:27 | CT Report ---
PROCEDURE: HEAD WO INDICATIONS: Head trauma, mod-severe TECHNIQUE: Noncontrast 4.5 mm thick angled axial sections acquired from the foramen magnum to the vertex. For r adiation dose reduction, the following was used: automated exposure control, adjustment of mA and/or kV according to patient size. COMPARISON: Prior head CT examinations, 11/12/2017, 11/06/2016. Correlation is also made with the accom panying cervical spine CT, 07/01/2020 FINDINGS: Image quality: Motion artifact is noted. CSF spaces: Basal cisterns are patent. No extra-axial fluid collections. Ventricles are normal in size and shape. Brain: No midline shift. No intracranial masses or hemorrhage. Kaplan-white matter interface is norm al. Brain parenchymal volume loss is seen. Chronic small vessel ischemic change is seen. Skull and face: Calvarium and visualized facial bones are intact, without suspicious lesions. Sinuses: Moderate mucosal thickening is seen within the left sphenoid sinus. Visualized sinuses and mastoids are otherwise clear. IMPRESSION: No intracranial hemorrhage is seen to the limits of this examination, with motion artifact. No significant intracranial abnormality is seen. Focal paranasal sinus disease involves the left sphenoid sinus. Reviewed by: Alvino Haro MD on 07/01/2020 10:26 AM [facility] Approved by: Alvino Haro MD on 07/01/2020 10:26 AM [facility] Station ID: [id number]
--- NOTE | 2020-07-01 11:30 | CT Report ---
PROCEDURE: CERVICAL SPINE WO INDICATIONS: Neck trauma, midline tenderness TECHNIQUE: Noncontrast 3 mm thick sections acquired from the skull base to the T4 level. Sagittal and coronal r eformats were then constructed. For radiation dose reduction, the following was used: automated exp osure control, adjustment of mA and/or kV according to patient size. COMPARISON: Correlation is made with the accompanying head CT, 07/01/2020. FINDINGS: Image quality: This study is limited by quantum mottle artifact. Bones: No fractures or dislocations. Visualized superior ribs are intact. C3-C4 grade 1 anterolisthesis is seen, with at least moderate disc space narrowing. There is moderate to severe disc space narrowing at C4-C5, C5-C6, and C6-C7. Grade 1 anterolisthesis is also seen at C 6-C7. Endplate irregularity and sclerosis are seen, which are most prominent inferiorly. Bridging ant erior osteophytes are seen from at least C4-C7. Focal degenerative change can also be seen involving the C1-C2 interface anteriorly. Milder degenerative changes are seen elsewhere. Soft tissues: Prevertebral soft tissues are normal in thickness. No paravertebral hematomas. No ap ical pneumothoraces. Atherosclerotic calcification is seen. IMPRESSION: No acute fractures are seen. Prominent lower cervical spine degenerative changes are seen. Reviewed by: Alvino Haro MD on 07/01/2020 10:29 AM [facility] Approved by: Alvino Haro MD on 07/01/2020 10:29 AM [facility] Station ID: [id number]
[2020-07-01 11:39] LABS: BASOPHILS # (AUTO) 0.1 10^3/uL (0.0-0.1); BASOPHILS % (AUTO) 0.7 %; EOSINOPHILS # (AUTO) 0.2 10^3/uL (0.0-0.7); EOSINOPHILS % (AUTO) 1.7 %; HGB - HEMOGLOBIN 11.1 g/dL (12.0-16.0); LYMPHOCYTES # (AUTO) 1.2 10^3/uL (1.5-3.5); LYMPHOCYTES % (AUTO) 10.1 %; MEAN CORPUSCULAR HEMOGLOBIN 31.5 pg (27.0-31.0); MEAN CORPUSCULAR HGB CONC 31.8 g/dL (32.0-36.0); MEAN CORPUSCULAR VOLUME 99.1 fL (81.0-99.0); MEAN PLATELET VOLUME 10.1 fL (7.9-10.8); MONOCYTES # (AUTO) 1.3 10^3/uL (0.0-1.0); MONOCYTES % (AUTO) 11.7 %; NEUTROPHILS # (AUTO) 8.6 10^3/uL (1.5-6.6); NEUTROPHILS % (AUTO) 74.8 %; PLT - PLATELET COUNT 223 10^3/uL (130-450); RED BLOOD COUNT 3.52 10^6/uL (4.20-5.40); RED CELL DISTRIBUTION WIDTH 14.2 % (12.0-15.0); WHITE BLOOD COUNT 11.4 x10^3/uL (4.8-10.8)
--- NOTE | 2020-07-01 11:39 | CT Report ---
PROCEDURE: CHEST WO INDICATIONS: CHEST TRAUMA BLUNT LOW ENERGY TECHNIQUE: Noncontrast 5 mm thick sections acquired from the pulmonary apices to the posterior costophrenic angl es. 7 mm thick coronal and sagittal MIP reformats were then acquired. For radiation dose reduction, the following was used: automated exposure control, adjustment of mA and/or kV according to patient size. COMPARISON: Correlation is made with the complete cervical spine CT and abdomen/pelvis CT, 0. FINDINGS: Image quality: Excellent. Lungs and pleura: No acute air space opacities. No pleural effusions or pneumothorax. Central and peripheral airways are patent and normal in caliber. Mediastinum: Heart size is normal. Moderate coronary artery calcification is seen. Calcification is seen of the mitral valve annulus as well as the aortic valve. Atherosclerotic calcification is seen. No pericardial effusion. No mediastinal adenopathy by size criteria. Thoracic aorta and central pul monary arteries are normal in size. Esophagus is normal in caliber. There is a small hiatal hernia. Bones and chest wall: No suspicious bony lesions. No thoracic vertebral body compression fractures. Age-appropriate degenerative changes are seen. No axillary or supraclavicular adenopathy by size c riteria. Right axillary clips are seen. The thyroid is small in size. Abdomen: A simple appearing liver cyst is seen. A simple appearing exophytic right renal cyst is seen . The left kidney is composed also anteriorly of cysts. The gallbladder is distended. The visualized portions of the upper abdominal structures are otherwise within normal limits. IMPRESSION: No significant posterior right abnormality is seen of the chest. No rib fractures, thoracic fractures , or pneumothorax can be seen. Incidental note is made of: Atherosclerotic calcification, with moderate coronary artery calcification. Right axillary clips Aortic valve calcification and mitral valve annulus calcification Small hiatal hernia Reviewed by: Alvino Haro MD on 07/01/2020 10:38 AM [facility] Approved by: Alvino Haro MD on 07/01/2020 10:38 AM [facility] Station ID: [id number]
--- NOTE | 2020-07-01 11:47 | CT Report ---
PROCEDURE: Abdomen/Pelvis WO INDICATIONS: ABD TRAUMA BLUNT TECHNIQUE: Noncontrast 5 mm thick sections acquired from the diaphragms to the symphysis. 5 mm coronal and sagi ttal reformats were then performed. For radiation dose reduction, the following was used: automated exposure control, adjustment of mA and/or kV according to patient size. COMPARISON: Correlation is made with the accompanying chest CT 07/01/2020. Correlation is also made with the prior lumbar spine CT dated 11/12/2017. FINDINGS: Image quality: Excellent. ABDOMEN: Lung bases: Lung bases are clear. Heart size is normal. Solid organs: The liver demonstrates normal size. Within the right liver, there is a water density cy st seen that measures up to 2.7 cm, with an internal density of 11 Hounsfield units. The gallbladder is distended. No cecily biliary dilatation is seen. The spleen is unremarkable. Pancreas is normal in contours. No adrenal nodules. There is an exophytic right renal cyst seen posteriorly and inferiorly measuring 7 Hounsfield units a nd 13 mm. The right kidney is mildly to moderately atrophic. The left kidney is highly atrophic, comp osed almost entirely of cysts. There is severe hydronephrosis. Moderate hydroureter is seen, which ex tends into the pelvis. Peritoneum and bowel: Unenhanced bowel loops demonstrate normal wall thickness and caliber. No free fluid or air. Advanced sigmoid diverticulosis is seen, without cecily active diverticulitis. A farzana l appendix is incidentally noted. Nodes and vessels: No retroperitoneal or mesenteric adenopathy by size criteria. Aorta and inferior vena cava are normal in caliber. Atherosclerotic calcification is seen. Miscellaneous: No ventral hernias. PELVIS: Genitourinary: The urinary bladder is decompressed at the time of this study. This patient is status post hysterectomy. No adnexal masses can be seen. Miscellaneous: No inguinal hernias or adenopathy. Bones: No suspicious bony lesions. There is a chronic appearing L2 compression deformity, which has progressed compared to 2018. There is 60% loss of height anteriorly. No cecily acute features are seen . Grade 1 L5-S1 anterolisthesis is seen, without associated pars defects. Moderate levoconvex lumbar scoliosis is seen. IMPRESSION: No definite, acute post traumatic abnormality is identified. Remote appearing L2 compression deformity, which has progressed compared to 2018. No acute features a re seen. Please correlate with focal tenderness. Severe left-sided hydronephrosis, with a highly atrophic left kidney. Left-sided hydroureter is seen, which extends into the pelvis. Mildly to moderately atrophic right kidney. Distended gallbladder, without a cause of gallbladder distention seen. No cecily biliary dilatation is seen. Incidental note is made of: Simple appearing right renal and liver cysts Advanced sigmoid diverticulosis, without active diverticulitis Hysterectomy Normal appendix Moderate levoconvex lumbar scoliosis Grade 1 L5-S1 anterolisthesis Reviewed by: Alvino Haro MD on 07/01/2020 10:45 AM [facility] Approved by: Alvino Haro MD on 07/01/2020 10:45 AM [facility] Station ID: [id number]
[2020-07-01 11:51] LABS: ALBUMIN 3.7 g/dL (3.2-5.5); ALKALINE PHOSPHATASE 86 IU/L (42-121); ALT ALANINE AMINOTRANSFERASE 13 IU/L (10-60); AST ASPARTATE AMINOTRANSFERASE 13 IU/L (10-42); BILIRUBIN,TOTAL 0.9 mg/dL (0.2-1.0); BUN - BLOOD UREA NITROGEN 41 mg/dL (6-20); CALCIUM 9.2 mg/dL (8.5-10.3); CARBON DIOXIDE - CO2 26 mmol/L (21-32); CHLORIDE 94 mmol/L (101-111); CREATININE 6.8 mg/dL (0.4-1.0); GLUCOSE 158 mg/dL (70-100); LIPASE 32 U/L (22-51); SODIUM 134 mmol/L (135-145); TOTAL PROTEIN 7.3 g/dL (6.7-8.2)
--- NOTE | 2020-07-01 12:08 | XRAY Report ---
PROCEDURE: Pelvis 1 View INDICATIONS: fall TECHNIQUE: 1 view(s) of the pelvis acquired. COMPARISON: Correlation is made with the accompanying CT of the abdomen and pelvis, 07/01/2020. FINDINGS: Bones: No fractures or dislocations. No suspicious bony lesions. Osteopenia and degenerative peoples es are seen. Soft tissues: Visualized bowel gas pattern is normal. No suspicious soft tissue calcifications. IMPRESSION: No displaced fractures are seen on this single image study. Reviewed by: Alvino Haro MD on 07/01/2020 11:07 AM [facility] Approved by: Alvino Haro MD on 07/01/2020 11:07 AM [facility] Station ID: [id number]
--- NOTE | 2020-07-01 12:10 | XRAY Report ---
PROCEDURE: Foot 2 View BILAT INDICATIONS: PAIN S/P FALL YESTERDAY TECHNIQUE: 2 views of each foot were acquired. COMPARISON: None FINDINGS: Bones: No acute fractures or dislocations. A remote fracture versus accessory ossicle can be seen a long the base of the first metatarsal. No suspicious bony lesions. Toe alignment abnormalities can b e seen. Age-appropriate degenerative changes are seen, particularly along the Lisfranc joint. Bilat eral plantar calcaneal spurs are seen, left worse than right. Soft tissues: No tibiotalar joint effusion. Achilles tendon appears normal. Generalized soft tissu e swelling is seen. Calcification can be seen of the distal arteries, which is commonly observed in p atients with long-standing diabetes. Please correlate with known patient history. IMPRESSION: No displaced acute fractures are seen. Generalized degenerative changes and soft tissue swelling can be seen. Reviewed by: Alvino Haro MD on 07/01/2020 11:09 AM [facility] Approved by: Alvino Haro MD on 07/01/2020 11:09 AM [facility] Station ID: [id number]
--- NOTE | 2020-07-01 12:12 | XRAY Report ---
PROCEDURE: Chest 1 View X-Ray INDICATIONS: fall yesterday from standing TECHNIQUE: One view of the chest was acquired. COMPARISON: Correlation is made with the accompanying chest CT, 07/01/2020. FINDINGS: Surgical changes and devices: Right axilla clips and right upper extremity clips are seen. Lungs and pleura: No pleural effusions or pneumothorax. Lungs are clear. Elevation of the right hem idiaphragm is seen. Mediastinum: The aorta is prominent and tortuous. The cardiac contours are within normal limits. Bones and chest wall: No suspicious bony lesions. Age-appropriate degenerative changes are seen. Overlying soft tissues appear unremarkable. IMPRESSION: No acute abnormality is seen on this single view chest study. Postoperative and degenerative changes are noted. Reviewed by: Alvino Haro MD on 07/01/2020 11:10 AM [facility] Approved by: Alvino aHro MD on 07/01/2020 11:10 AM [facility] Station ID: [id number]
--- NOTE | 2020-07-01 12:19 | XRAY Report ---
PROCEDURE: Ankle BILAT INDICATIONS: fall yesterday TECHNIQUE: 2 views of each ankle were acquired. COMPARISON: Correlation is made with the accompanying tibia and fibula examinations as well as bilat eral foot examinations. FINDINGS: Bones: No fractures or dislocations. Ankle mortise is normally aligned. No suspicious bony lesions . Degenerative changes are seen throughout. Plantar calcaneal spurs are seen on both sides. Soft tissues: Prominent soft tissue calcification is seen distally. Please could relate with venous s tasis. Advanced distal calcification is seen, which is compatible with long-standing diabetes. IMPRESSION: There are degenerative changes and soft tissue calcification, without a displaced fractu re identified. Please correlate with focal tenderness. If there is point tenderness (or other clinical concern for a fracture not seen on these plain films) then please consider a dedicated CT study or a short term fo llow up plain film series for further evaluation. Reviewed by: Alvino Haro MD on 07/01/2020 11:17 AM [facility] Approved by: Alvino Haro MD on 07/01/2020 11:17 AM [facility] Station ID: [id number]
[2020-07-01 12:24] LABS: PLATELET ESTIMATE, MANUAL NORMAL (130-450,000) (NORMAL); PLATELET MORPHOLOGY NORMAL APPEARANCE (NORMAL); RBC MORPHOLOGY (MULTIPLE) NORMAL APPEARANCE (NORMAL)
[2020-07-01 12:36] LABS: INR 1.1 (0.8-1.2); PT - PROTHROMBIN TIME 12.2 secs (9.9-12.6)
[2020-07-01 12:37] VITALS: BP 114/41
[2020-07-01 12:44] LABS: PARTIAL THROMBOPLASTIN TIME 18.9 secs (24.9-33.3)
--- NOTE | 2020-07-01 12:45 | XRAY Report ---
PROCEDURE: Tib/Fib BILAT INDICATIONS: fall yesterday, ankle pain TECHNIQUE: 2 views of the tibia and fibula were acquired. COMPARISON: Ankle plain films, 07/01/2020 FINDINGS: The distal ends of the tibia and fibula are not included within the [id number] of this study, although they are included within the ankle images. Bones: No fractures or dislocations. No suspicious bony lesions. At least moderate changes are seen involving the knees. Soft tissues: Calcification is seen along the joint lines of the knees, which is attributed to menisc al calcification. Distal soft tissue calcification is seen. Please correlate with venous stasis. Prominent vascular mariana cification is seen. Please correlate with diabetes. IMPRESSION: No displaced fractures are seen. Reviewed by: Alvino Haro MD on 07/01/2020 11:44 AM [facility] Approved by: Alvino Haro MD on 07/01/2020 11:44 AM [facility] Station ID: [id number]
--- NOTE | 2020-07-01 13:40 | ED Physician Documentation ---
PD HPI LOWER EXT INJURY - Stated complaint Stated Complaint: GLF - Chief complaint Chief Complaint: Trauma Ext - Treatment prior to arrival Treatment prior to arrival: 84-year-old woman with past medical history osteoarthritis, diabetes, neuropathy, ESRD on HD Thursday, presents with bilateral lower extremity pain after fall Thursday at 2 AM at [facility].Patient Has had progressive difficulty ambulating since that time. Fall was mechanical in nature per her report and involved HT but no AC, no LOC. her only complaint at present is pain in her feet radiating up the legs she attributes to neuropathy versus pain from the fall. tingling/burning, moderate severity, worse with pressing on the legs. Review of Systems Ten Systems: 10 systems reviewed and negative Constitutional: denies: Fever, Chills Eyes: denies: Loss of vision Ears: denies: Loss of hearing Nose: denies: Epistaxis Throat: denies: Dental pain / toothache Cardiac: denies: Chest pain / pressure Respiratory: denies: Dyspnea Skin: denies: Abrasion (s), Laceration (s) Musculoskeletal: reports: Extremity pain. denies: Neck pain PD PAST MEDICAL HISTORY - Past Medical History Cardiovascular: Hypertension, High cholesterol, Murmur Respiratory: Shortness of breath Endocrine/Autoimmune: Type 2 diabetes GI: None : Dialysis, Renal insuffiency HEENT: Chronic vision loss Psych: None Musculoskeletal: Osteoarthritis, Osteoporosis, Osteopenia, Gout, Chronic back pain Derm: Other - Past Surgical History Past Surgical History: Yes General: Colonoscopy /PROMPT CARE RN: Hysterectomy, Other - Present Medications Home Medications: Ambulatory Orders Medication Instructions Recorded Confirmed Gabapentin 300 mg PO DAILY 06/05/16 05/19/18 Vit B Comp No.3/Folic/C/Biotin 1 tab PO QPM 06/23/17 05/19/18 [Winnie-Janeen Rx Tablet] Acetaminophen [Tylenol Extra 500 mg PO TID 12/21/17 05/19/18 Strength] oxyCODONE [Roxicodone] 5 mg PO Q4HR PRN 12/21/17 05/19/18 allopurinoL [Allopurinol] 2 tab PO DAILY 01/28/18 05/19/18 Metoprolol Succinate 25 mg PO DAILY 05/19/18 05/19/18 Aspirin [Adult Aspirin Regimen] 81 mg PO DAILY 01/27/20 01/27/20 Ferric Citrate [Auryxia] 2 tab AC 01/27/20 01/27/20 Fluticasone [Flonase] 1 spray BID 01/27/20 01/27/20 - Allergies Allergies/Adverse Reactions: Allergies Allergy/AdvReac Type Severity Reaction Status Date / Time amoxicillin Allergy Unknown Rash Verified 01/27/20 18:21 codeine Allergy Unknown Nausea Verified 01/27/20 18:21 hydrocodone Allergy Unknown Nausea Verified 01/27/20 18:21 Sulfa (Sulfonamide Allergy Unknown Rash Verified 01/27/20 18:21 Antibiotics) - Social History Does the pt smoke?: No Smoking Status: Never smoker Does the pt drink ETOH?: No Does the pt have substance abuse?: No - Immunizations Immunizations are current?: Yes - POLST Patient has POLST: No PD ED PE NORMAL - Vitals Vital signs reviewed: Yes - General General: Alert and oriented X 3 - HEENT HEENT: Atraumatic, PERRL, EOMI - Neck Neck: No bony TTP - Cardiac Cardiac: RRR - Respiratory Respiratory: No respiratory distress - Abdomen Abdomen: Normal bowel sounds - Female Female : Deferred - Rectal Rectal: Deferred - Back Back: No spinal TTP - Derm Derm: Normal color - Extremities Extremities: Other (BL LE edema. ankles with diminished rom. ) - Neuro Neuro: Alert and oriented X 3 - Psych Psych: Normal mood, Normal affect Results - Vitals Vitals: Vital Signs - 24 hr 07/01/20 07/01/20 07/01/20 09:30 10:02 11:31 Temperature 36.8 C Heart Rate 105 H 101 H 102 H Respiratory 18 20 16 Rate Blood Pressure 107/49 L 101/69 132/79 H O2 Saturation 95 93 97 07/01/20 12:35 Temperature Heart Rate 101 H Respiratory 16 Rate Blood Pressure 114/41 L O2 Saturation 93 Oxygen O2 Source Room air - Labs Labs: Laboratory Tests 07/01/20 07/01/20 07/01/20 11:26 11:26 12:16 WBC 11.4 H RBC 3.52 L Hgb 11.1 L Hct 34.9 L MCV 99.1 H MCH 31.5 H MCHC 31.8 L RDW 14.2 Plt Count 223 MPV 10.1 Neut # (Auto) 8.6 H Lymph # (Auto) 1.2 L [place] # (Auto) 1.3 H Eos # (Auto) 0.2 Baso # (Auto) 0.1 Absolute Nucleated RBC 0.00 Nucleated RBC % 0.0 Manual Slide Review Indicated Platelet Estimate NORMAL (130-450,000) Platelet Morphology NORMAL APPEARANCE RBC Morph Micro Appear NORMAL APPEARANCE PT 12.2 INR 1.1 APTT 18.9 L Sodium 134 L Potassium 5.6 H Chloride 94 L Carbon Dioxide 26 Anion Gap 14.0 H BUN 41 H Creatinine 6.8 H Estimated GFR (MDRD) 6 L Glucose 158 H Calcium 9.2 Total Bilirubin 0.9 AST 13 ALT 13 Alkaline Phosphatase 86 Total Protein 7.3 Albumin 3.7 Globulin 3.6 Albumin/Globulin Ratio 1.0 Lipase 32 Ethyl Alcohol < 5.0 PD MEDICAL DECISION MAKING - ED course ED course: 84-year-old woman comes from [facility] status post fall 2 days ago with bilateral leg pain. No evidence of acute fracture on martinez scan and extremity x- rays. plan to dc home. Discussed with patient need for follow-up in regards to incidental findings on CT. As well as need for follow-up x-rays of the extremities. Departure - Departure Disposition: Home, Self Care Clinical Impression: Fall, Fall from slip, trip, or stumble Condition: Good Instructions: Falls Risks Prevent, ED Prevention Fall Comments: You have been seen in the ED for a fall. You had CT scans of your head, neck, chest abdomen and pelvis as well as x-rays of your chest, pelvis, and legs/feet without any evidence of broken bones. You should follow up with your primary doctor, plan for physical therapy and rest in the meantime. Retun to the ed for any concerns or worsening of symptoms. Discharge Date/Time: 07/01/20 13:51
== END 2020-07-01 13:51 | disposition home or self-care (01) ==
LOC: EDUNIT# → ED 09:28
DX: M79.662 Pain in left lower leg (principal); M79.661 Pain in right lower leg; W01.0XXA Fall on same level from slipping, tripping and stumbling without subsequent striking against object, initial encounter; Y92.129 Unspecified place in nursing home as the place of occurrence of the external cause; E11.40 Type 2 diabetes mellitus with diabetic neuropathy, unspecified; I12.0 Hypertensive chronic kidney disease with stage 5 chronic kidney disease or end stage renal disease; E11.22 Type 2 diabetes mellitus with diabetic chronic kidney disease; N18.6 End stage renal disease; Z99.2 Dependence on renal dialysis; M19.072 Primary osteoarthritis, left ankle and foot; M19.071 Primary osteoarthritis, right ankle and foot; M47.812 Spondylosis without myelopathy or radiculopathy, cervical region; M41.86 Other forms of scoliosis, lumbar region; K44.9 Diaphragmatic hernia without obstruction or gangrene; N28.1 Cyst of kidney, acquired; K76.89 Other specified diseases of liver; K57.30 Diverticulosis of large intestine without perforation or abscess without bleeding; Z79.82 Long term (current) use of aspirin
CPT/HCPCS: 36415; 70450; 71045; 71250; 72125; 72170; 74176; 80053; 80320; 83690; 85025; 85610; 85730; 99282; 99284

== ENCOUNTER 2020-12-14 07:29 | Outpatient (CLI) | payer MEDICARE, BC | END 2020-12-14 23:59 | disposition critical access hospital (66) | LOC: EMS 07:29 | DX: Z04.3 Encounter for examination and observation following other accident (principal); R07.81 Pleurodynia | CPT/HCPCS: A0425; A0429 ==

== ENCOUNTER 2020-12-14 07:44 | Emergency (ER) | payer MEDICARE, BC ==
[2020-12-14] MEDS ORDERED: ACETAMINOPHEN 325 MG TABLET PO STA (08:04)
--- NOTE | 2020-12-14 09:12 | CT Report ---
PROCEDURE: CHEST WO INDICATIONS: fall to buttocks; pain left ribs, low back/buttock TECHNIQUE: Noncontrast 5 mm thick sections acquired from the pulmonary apices to the posterior costophrenic angl es. 7 mm thick coronal and sagittal MIP reformats were then acquired. For radiation dose reduction, the following was used: automated exposure control, adjustment of mA and/or kV according to patient size. COMPARISON: 07/01/[address] abdomen and pelvis. FINDINGS: Image quality: Excellent. Lungs and pleura: No acute air space opacities. No pleural effusions or pneumothorax. Central and peripheral airways are patent and normal in caliber. Mediastinum: Cardiomegaly. Some coronary artery calcifications. No pericardial effusion. No mediastinal adenopathy by size crit eria. Thoracic aorta and central pulmonary arteries are normal in size. Esophagus is normal in [place] genna. No hiatal hernia. Bones and chest wall: No suspicious bony lesions. Fractures of the posterior left seventh, eighth, n inth, 10th, 11th, and 12th ribs. No acute vertebral body compression fractures. Old severe L2 guy blue. No axillary or supraclavicular adenopathy by size criteria. The thyroid is normal in size. Abdomen: Suspect occlusion or high-grade calcified stenosis of the SMA. Possible severe calcified st enosis of the celiac. Nonfunctioning left kidney composed of extensive cysts with no residual cortex. IMPRESSION: 1. Acute fractures of the left seventh, eighth, ninth, 10th, 11th, 12th ribs. 2. No pneumothorax. 3. Cardiomegaly with advanced coronary artery calcifications. 4. Probable either high-grade calcified stenosis or occlusion of the SMA. Possible severe calcified s tenosis of the celiac. Question: Does this patient have any signs of chronic mesenteric ischemia? 5. Nonfunctioning left kidney. 6. Old severe L2 compression fracture. No acute compression fractures identified. Reviewed by: Berlin Song MD on 12/14/2020 9:11 AM PDT Approved by: Berlin Song MD on 12/14/2020 9:11 AM PDT Station ID: [id number]
--- NOTE | 2020-12-14 09:19 | CT Report ---
PROCEDURE: LUMBAR SPINE WO INDICATIONS: fall to buttocks; pain left ribs, low back/buttock TECHNIQUE: Noncontrast 3 mm thick sections acquired from the T12 level to the sacrum. Sagittal and coronal refo rmats were constructed. For radiation dose reduction, the following was used: automated exposure co ntrol, adjustment of mA and/or kV according to patient size. COMPARISON: CT of abdomen and pelvis dated 07/01/[address] of lumbar spine dated 11/12/2017. FINDINGS: Image quality: Excellent. Bones: There is mild levoscoliosis of lumbar spine centered at L3 level. Chronic appearing anterior wedge compression deformity at L2 level is seen with up to 60% loss of L2 vertebral body height anter iorly measured on the current study compared to 29% loss of L2 vertebral body height in 2018. However this is unchanged from CT of abdomen and pelvis dated 07/01/2020. Significant retropulsion of L2 post erior wall is seen causing moderate central canal stenosis at this level also unchanged from 2020 [address] [address]. No acute vertebral body compression fractures. Grade 1 anterolisthesis of L5 on S1 is seen unchan ged from prior studies and measures up to 8 mm in distance. No suspicious lytic or blastic bony lesio ns. Central spinal caliber is of normal overall caliber. No pars defects. T12-L1: Central disc bulge with mild central canal stenosis, no significant neural foraminal narrowi ng. L1-L2: Mild diffuse disc bulge is seen with mild central canal stenosis, no significant neural for aminal narrowing. L2-L3: Broad-based disc bulge and bilateral facet arthrosis is seen. Mild to moderate central carla l stenosis is seen, no significant neural foraminal narrowing. L3-L4: Broad-based disc bulge and bilateral facet arthrosis is seen causing mild central canal sten osis and mild bilateral neural foraminal narrowing. L4-L5: Broad-based disc bulge and bilateral facet arthrosis with hypertrophy of ligamentum flavum i s seen causing moderate central canal stenosis and bilateral neural foraminal narrowing. L5-S1: Vacuum disc phenomenon is seen. Broad-based disc bulge and bilateral facet arthrosis is note d causing moderate central canal stenosis and moderate to severe left-sided neural foraminal narrowin g. Mild to moderate right-sided neural foraminal narrowing is also noted. Soft tissues: No retroperitoneal masses or hematomas. Visualized aorta is normal in caliber. Exten sive atherosclerotic calcifications throughout the abdominal aorta is seen. Suggestion of a large lef t renal cyst is noted incompletely evaluated on this study. IMPRESSION: 1. Subacute to chronic appearing anterior wedge compression deformity at L2 level without to 60% loss of L2 vertebral body height and significant retropulsion of L2 posterior wall causing moderate centr al canal stenosis at this level. No acute compression fracture is seen. 2. Grade 1 anterolisthesis of L5 on S1 unchanged from prior studies. No gross pars defect is seen. 3. Degenerative disc bulge and bilateral facet arthrosis throughout lumbar spine causing [id number] rate central canal stenosis and bilateral neural foraminal stenosis more prominent at L4-5 and L5-S1 levels as described above. Reviewed by: Agapito Avila MD on 12/14/2020 8:17 AM [facility] Approved by: Agapito Avila MD on 12/14/2020 8:17 AM [facility] Station ID: [id number]
--- NOTE | 2020-12-14 09:27 | CT Report ---
PROCEDURE: PELVIS WO INDICATIONS: fall to buttocks; pain left ribs, low back/buttock TECHNIQUE: Noncontrast 3 mm axial sections acquired through the bony pelvis, with coronal and sagittal reformatt ing. For radiation dose reduction, the following was used: automated exposure control, adjustment of mA and/or kV according to patient size. COMPARISON: CT of abdomen and pelvis dated 07/01/2020 FINDINGS: Image quality: Excellent. Bones: Pelvic ring is intact. There is no acute pelvic or hip fracture. No acute coccygeal fracture. Moderate bilateral hip joint osteoarthritic changes are seen. No evidence of avascular necrosis of f emoral heads. Osteoarthritic changes also noted in bilateral sacroiliac joints and symphysis pubis. D egenerative disc disease in visualized lower lumbar spine at L4-5 and L5-S1 levels are seen better ev aluated on CT of lumbar spine study from the same day. Soft tissues: There is no peritoneal free fluid of free air. Suggestion of severe left-sided hydrone phrosis and atrophy of left kidney is again seen, unchanged from previous CT of abdomen and pelvis st [facility]. No abnormal bowel wall thickening. Atherosclerotic calcifications in the abdominal aorta and carol ateral iliac vessels are seen. Bladder wall thickness is normal. No pelvic lymphadenopathy. There is no gross muscle or soft tissue abnormality. No significant presacral soft tissue swelling. N o gross soft tissue hematoma or mass. IMPRESSION: 1. No acute pelvic fracture or dislocation. No acute sacral coccygeal fracture. Osteoarthritis throug hout the bony pelvis. No evidence of avascular necrosis of femoral head. 2. No pelvic free fluid of free air. No gross soft tissue or muscle abnormality is seen. 3. Severe left-sided hydronephrosis unchanged from previous CT of abdomen and pelvis study in 2019 an d is suggestive of chronic process. 4. Degenerative disc disease in visualized lower lumbar spine better evaluated on dedicated CT of lum bar spine study from the same date. Reviewed by: Agapito Avila MD on 12/14/2020 8:26 AM NOE Approved by: Agapito Avila MD on 12/14/2020 8:26 AM NOE Station ID: [id number]
--- NOTE | 2020-12-14 10:25 | ED Physician Documentation ---
PD HPI Fall - Stated complaint Stated Complaint: GLF - Chief complaint Chief Complaint: General - History obtained from History obtained from: Patient - History of Present Illness Mechanism of injury: Lost balance Fall distance: Standing position (She states she was stepping back from scale and lost balance, falling to her buttock, then back. Did not strike head (states did not fall fully backward, but largely just onto gluteal/sacral area). Pain in gluteal, low back and left ribs posteriorly. Hurts for breathing.) Where injury occurred: Home Timing - onset: How many hours ago (30) Injury(ies) location: Chest (posterior left ribs/chest), Back, Left Lower Extremity (gluteal area). No: Head, Neck, Abdomen Associated symptoms: No: LOC, AMS, Neck pain, Weakness, Paresthesias, Nausea / vomiting Worsens with: Movement, Palpation Contributing factors: No: Anticoagulated, Intoxicated Similar symptoms before: Has not had sx before Recently seen: Clinic (dialysis 3 times weekly, last was 2 days ago; due to go this afternoon.) Review of Systems Constitutional: denies: Fever, Chills Nose: denies: Rhinorrhea / runny nose, Congestion Throat: denies: Sore throat Cardiac: reports: Chest pain / pressure Respiratory: reports: Dyspnea. denies: Cough GI: denies: Abdominal Pain, Nausea, Vomiting Skin: denies: Abrasion (s), Laceration (s) Musculoskeletal: denies: Neck pain, Back pain Neurologic: denies: Focal weakness, Numbness, Near syncope, Headache, Head injury PD PAST MEDICAL HISTORY - Past Medical History Past Medical History: Yes Cardiovascular: Hypertension, High cholesterol, Murmur Respiratory: Shortness of breath Endocrine/Autoimmune: Type 2 diabetes GI: None : Dialysis, Renal insuffiency HEENT: Chronic vision loss Psych: None Musculoskeletal: Osteoarthritis, Osteoporosis, Osteopenia, Gout, Chronic back pain Derm: Other - Past Surgical History Past Surgical History: Yes 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, Other - Present Medications Home Medications: Ambulatory Orders Medication Instructions Recorded Confirmed Gabapentin 300 mg PO DAILY 06/05/16 12/14/20 Vit B Comp No.3/Folic/C/Biotin 1 tab PO QPM 06/23/17 12/14/20 [Winnie-Janeen Rx Tablet] Acetaminophen [Tylenol Extra 500 mg PO TID 12/21/17 12/14/20 Strength] oxyCODONE [Roxicodone] 5 mg PO Q4HR PRN 12/21/17 12/14/20 allopurinoL [Allopurinol] 2 tab PO DAILY 01/28/18 12/14/20 Metoprolol Succinate 25 mg PO DAILY 05/19/18 12/14/20 Aspirin [Adult Aspirin Regimen] 81 mg PO DAILY 01/27/20 12/14/20 Ferric Citrate [Auryxia] 2 tab AC 01/27/20 12/14/20 Fluticasone [Flonase] 1 spray BID 01/27/20 12/14/20 Ivabradine HCl [Corlanor] 2.5 mg BID 12/14/20 12/14/20 - Allergies Allergies/Adverse Reactions: Allergies Allergy/AdvReac Type Severity Reaction Status Date / Time amoxicillin Allergy Unknown Rash Verified 12/14/20 07:52 codeine Allergy Unknown Nausea Verified 12/14/20 07:52 hydrocodone Allergy Unknown Nausea Verified 12/14/20 07:52 Sulfa (Sulfonamide Allergy Unknown Rash Verified 12/14/20 07:52 Antibiotics) - Social History Does the pt smoke?: No Smoking Status: Never smoker Does the pt drink ETOH?: No Does the pt have substance abuse?: No - Immunizations Immunizations are current?: Yes - POLST Patient has POLST: No PD ED PE NORMAL - Vitals Vital signs reviewed: Yes - General General: Alert and oriented X 3, Well developed/nourished, Other (appears moderately uncomfortable with movement and breathing. ) - HEENT HEENT: Atraumatic - Neck Neck: Supple, no meningeal sign, No adenopathy - Cardiac Cardiac: RRR, No murmur - Respiratory Respiratory: No respiratory distress, Clear bilaterally, Other (left posterolateral chestwall tenderness without crepitance. ) - Abdomen Abdomen: Soft, Non tender - Back Back: No CVA TTP, Other (tender lower lumbar area without deformity. Also tender left ramus area of buttock. No noted bruising. ) - Derm Derm: Normal color, Warm and dry - Extremities Extremities: No tenderness to palpate, Normal ROM s pain, No edema, No calf tenderness / cord - Neuro Neuro: Alert and oriented X 3, jail guard 2-12 intact, No motor deficit, No sensory deficit, Normal speech, Other Eye Opening: Spontaneous Motor: Obeys Commands Verbal: Oriented GCS Score: 15 Results - Vitals Vitals: Vital Signs - 24 hr 12/14/20 12/14/20 12/14/20 07:43 09:25 10:00 Temperature 36.2 C L Heart Rate 95 82 90 Respiratory 16 19 15 Rate Blood Pressure 140/86 H 122/73 120/48 L O2 Saturation 100 98 99 12/14/20 12/14/20 11:00 12:00 Temperature Heart Rate 93 94 Respiratory 15 17 Rate Blood Pressure 114/60 109/74 O2 Saturation 96 96 Oxygen O2 Source Room air - Labs Labs: Laboratory Tests 12/14/20 12/14/20 12/14/20 09:54 10:23 10:23 WBC 15.9 H RBC 3.74 L Hgb 11.9 L Hct 36.9 L MCV 98.7 MCH 31.8 H MCHC 32.2 RDW 14.7 Plt Count 269 MPV 9.6 Neut # (Auto) 13.2 H Lymph # (Auto) 1.1 L Pepin # (Auto) 1.2 H Eos # (Auto) 0.2 Baso # (Auto) 0.1 Absolute Nucleated RBC 0.00 Nucleated RBC % 0.0 PT 11.2 INR 1.0 APTT 21.4 L Sodium Potassium Chloride Carbon Dioxide Anion Gap BUN Creatinine Estimated GFR (MDRD) Glucose Calcium Phosphorus Magnesium Total Bilirubin AST ALT Alkaline Phosphatase Total Protein Albumin Globulin Albumin/Globulin Ratio Lipase Nasal Adenovirus (PCR) NOT DETECTED Nasal B. parapertussis DNA (PCR) NOT DETECTED Nasal Coronavir 229E PCR NOT DETECTED Nasal Coronavir HKU1 PCR NOT DETECTED Nasal Coronavir NL63 PCR NOT DETECTED Nasal Coronavir OC43 PCR NOT DETECTED Nasal Enterovir/Rhinovir PCR NOT DETECTED Nasal Influenza B PCR NOT DETECTED Nasal Influenza A PCR NOT DETECTED Nasal Parainfluen 1 PCR NOT DETECTED Nasal Parainfluen 2 PCR NOT DETECTED Nasal Parainfluen 3 PCR NOT DETECTED Nasal Parainfluen 4 PCR NOT DETECTED Nasal RSV (PCR) NOT DETECTED Nasal B.pertussis DNA PCR NOT DETECTED Nasal C.pneumoniae (PCR) NOT DETECTED Franki Human Metapneumo PCR NOT DETECTED Nasal M.pneumoniae (PCR) NOT DETECTED Nasal SARS-CoV-2 (PCR) NOT DETECTED 12/14/20 10:23 WBC RBC Hgb Hct MCV MCH MCHC RDW Plt Count MPV Neut # (Auto) Lymph # (Auto) Pepin # (Auto) Eos # (Auto) Baso # (Auto) Absolute Nucleated RBC Nucleated RBC % PT INR APTT Sodium 138 Potassium 4.4 Chloride 98 L Carbon Dioxide 23 Anion Gap 17.0 H BUN 39 H Creatinine 7.3 H* Estimated GFR (MDRD) 5 L Glucose 169 H Calcium 9.1 Phosphorus 6.8 H Magnesium 2.1 Total Bilirubin 0.7 AST 17 ALT 16 Alkaline Phosphatase 95 Total Protein 7.5 Albumin 4.0 Globulin 3.5 Albumin/Globulin Ratio 1.1 Lipase 39 Nasal Adenovirus (PCR) Nasal B. parapertussis DNA (PCR) Nasal Coronavir 229E PCR Nasal Coronavir HKU1 PCR Nasal Coronavir NL63 PCR Nasal Coronavir OC43 PCR Nasal Enterovir/Rhinovir PCR Nasal Influenza B PCR Nasal Influenza A PCR Nasal Parainfluen 1 PCR Nasal Parainfluen 2 PCR Nasal Parainfluen 3 PCR Nasal Parainfluen 4 PCR Nasal RSV (PCR) Nasal B.pertussis DNA PCR Nasal C.pneumoniae (PCR) Franki Human Metapneumo PCR Nasal M.pneumoniae (PCR) Nasal SARS-CoV-2 (PCR) - Rads (name of study) pelvic CT Radiology: Prelim report reviewed (no fractures), See rad report lumbar CT Radiology: Prelim report reviewed (prior S2 compression; no acutre process), See rad report chest CT Radiology: Prelim report reviewed (lungs okay. Fracture of ribs 7-12 without displacement.), See rad report PD MEDICAL DECISION MAKING - ED course Complexity details: considered differential (multiple rib fractures. Dialysis patient so cannot be treated appropriately here. [facility] did not have beds available. Talked with [facility], who accepted. ), d/w patient Departure - Departure Disposition: 02 Transfer Acute Care Hosp Clinical Impression: Fall from slip, trip, or stumble Qualifiers: Encounter type: initial encounter Qualified Code(s): W01.0XXA - Fall on same level from slipping, tripping and stumbling without subsequent striking against object, initial encounter Contusion, buttock Qualifiers: Encounter type: initial encounter Qualified Code(s): S30.0XXA - Contusion of lower back and pelvis, initial encounter Low back strain Qualifiers: Encounter type: initial encounter Qualified Code(s): S39.012A - Strain of muscle, fascia and tendon of lower back, initial encounter Multiple rib fractures Qualifiers: Encounter type: initial encounter Fracture type: closed Laterality: left Qualified Code(s): S22.42XA - Multiple fractures of ribs, left side, initial encounter for closed fracture Chronic renal failure Qualifiers: Chronic kidney disease stage: stage 5 Qualified Code(s): N18.5 - Chronic kidney disease, stage 5 Condition: Stable Discharge Date/Time: 12/14/20 12:35
[2020-12-14 10:26] LABS: BASOPHILS # (AUTO) 0.1 10^3/uL (0.0-0.1); BASOPHILS % (AUTO) 0.6 %; EOSINOPHILS # (AUTO) 0.2 10^3/uL (0.0-0.7); EOSINOPHILS % (AUTO) 0.9 %; HCT - HEMATOCRIT 36.9 % (37.0-47.0); HGB - HEMOGLOBIN 11.9 g/dL (12.0-16.0); LYMPHOCYTES # (AUTO) 1.1 10^3/uL (1.5-3.5); LYMPHOCYTES % (AUTO) 6.9 %; MEAN CORPUSCULAR HEMOGLOBIN 31.8 pg (27.0-31.0); MEAN CORPUSCULAR HGB CONC 32.2 g/dL (32.0-36.0); MEAN CORPUSCULAR VOLUME 98.7 fL (81.0-99.0); MEAN PLATELET VOLUME 9.6 fL (7.9-10.8); MONOCYTES # (AUTO) 1.2 10^3/uL (0.0-1.0); MONOCYTES % (AUTO) 7.3 %; NEUTROPHILS # (AUTO) 13.2 10^3/uL (1.5-6.6); NEUTROPHILS % (AUTO) 83.1 %; PLT - PLATELET COUNT 269 10^3/uL (130-450); RED BLOOD COUNT 3.74 10^6/uL (4.20-5.40); RED CELL DISTRIBUTION WIDTH 14.7 % (12.0-15.0); WHITE BLOOD COUNT 15.9 x10^3/uL (4.8-10.8)
[2020-12-14 10:32] LABS: PT - PROTHROMBIN TIME 11.2 secs (9.9-12.6)
[2020-12-14 10:40] LABS: PARTIAL THROMBOPLASTIN TIME 21.4 secs (24.9-33.3)
[2020-12-14 10:43] LABS: ALBUMIN/GLOBULIN RATIO 1.1 (1.0-2.2); BILIRUBIN,TOTAL 0.7 mg/dL (0.2-1.0); CALCIUM 9.1 mg/dL (8.5-10.3); MAGNESIUM 2.1 mg/dL (1.7-2.8); PHOSPHORUS 6.8 mg/dL (2.5-4.6); POTASSIUM 4.4 mmol/L (3.5-5.0); TOTAL PROTEIN 7.5 g/dL (6.7-8.2)
[2020-12-14 10:47] LABS: CREATININE 7.3 mg/dL (0.4-1.0)
[2020-12-14 11:08] LABS: B. PARAPERTUSSIS- RESP PCR PAN NOT DETECTED; B. PERTUSSIS- RESP PCR PANEL NOT DETECTED; C. PNEUMONIAE- RESP PCR PANEL NOT DETECTED; CORONAVIRUS 229E-RESP PCR NOT DETECTED; CORONAVIRUS HKU1-RESP PCR NOT DETECTED; CORONAVIRUS NL63-RESP PCR NOT DETECTED; CORONAVIRUS OC43-RESP PCR NOT DETECTED; HUMAN METAPNEUMOVIRUS NOT DETECTED; INFLUENZA A- RESP PCR PANEL NOT DETECTED; INFLUENZA B - RESP PCR PANEL NOT DETECTED; M. PNEUMONIAE- RESP PCR PANEL NOT DETECTED; PARAINFLUENZA VIRUS 1 NOT DETECTED; PARAINFLUENZA VIRUS 2 NOT DETECTED; PARAINFLUENZA VIRUS 3 NOT DETECTED; PARAINFLUENZA VIRUS 4 NOT DETECTED; RHINOVIRUS/ENTEROVIRUS NOT DETECTED; RSV- RESP PCR PANEL NOT DETECTED; SARS-CoV-2 -RESP PCR PANEL NOT DETECTED
[2020-12-14] MEDS ORDERED: HYDROmorphone 1 MG/ML CARPUJECT IVP STA (11:29)
[2020-12-14] MEDS ORDERED: ONDANSETRON 4 MG/2 ML VIAL IVP STA (11:29)
[2020-12-14 12:03] VITALS: BP 109/74
== END 2020-12-14 12:35 | disposition short-term general hospital (02) ==
LOC: EDUNIT# → ED 07:44
DX: S22.42XA Multiple fractures of ribs, left side, initial encounter for closed fracture (principal); S39.012A Strain of muscle, fascia and tendon of lower back, initial encounter; S30.0XXA Contusion of lower back and pelvis, initial encounter; W01.0XXA Fall on same level from slipping, tripping and stumbling without subsequent striking against object, initial encounter; Y93.89 Activity, other specified; Y92.009 Unspecified place in unspecified non-institutional (private) residence as the place of occurrence of the external cause; Z20.822 Contact with and (suspected) exposure to COVID-19; I12.0 Hypertensive chronic kidney disease with stage 5 chronic kidney disease or end stage renal disease; E11.22 Type 2 diabetes mellitus with diabetic chronic kidney disease; N18.5 Chronic kidney disease, stage 5; Z99.2 Dependence on renal dialysis; M51.37 Other intervertebral disc degeneration, lumbosacral region; M48.07 Spinal stenosis, lumbosacral region; M51.27 Other intervertebral disc displacement, lumbosacral region; I44.4 Left anterior fascicular block; Z79.82 Long term (current) use of aspirin
CPT/HCPCS: 36415; 71250; 72131; 72192; 80053; 83690; 83735; 84100; 85025; 85610; 85730; 87631; 93005; 96374; 96375; 99284; 99285; A9270; J1170; 0202U

== ENCOUNTER 2020-12-14 12:35 | Outpatient (CLI) | payer MEDICARE, BC | END 2020-12-14 12:36 | disposition short-term general hospital (02) | LOC: EMS 12:35 | PROVIDERS: ATTEND Emergency Medicine | DX: S22.49XA Multiple fractures of ribs, unspecified side, initial encounter for closed fracture (principal); W18.30XA Fall on same level, unspecified, initial encounter | CPT/HCPCS: A0425; A0428 ==

== ENCOUNTER 2021-06-05 12:20 | Outpatient (CLI) | payer MEDICARE, BC | END 2021-06-05 12:21 | disposition home or self-care (01) | LOC: COV 12:20 | PROVIDERS: ATTEND Nurse Practitioner | DX: Z01.812 Encounter for preprocedural laboratory examination (principal); Z20.822 Contact with and (suspected) exposure to COVID-19 ==

== ENCOUNTER 2021-08-08 11:48 | Emergency (ER) | payer MEDICARE, BC ==
[2021-08-08 12:12] VITALS: BP 121/55
--- NOTE | 2021-08-08 12:50 | XRAY Report ---
PROCEDURE: Ribs w/PA Chest LT INDICATIONS: L rib pain TECHNIQUE: 2 views of the left ribs were acquired, along with a single view chest. COMPARISON: Chest x-ray 07/01/2020. FINDINGS: Surgical changes and devices: Aortic valve prosthesis. Multiple right axillary surgical clips. Bones and chest wall: Left sixth, seventh, eighth, ninth and 10th rib fractures of indeterminate age. No suspicious bony lesions. Overlying soft tissues appear unremarkable. Lungs and pleura: Eventration of the right hemidiaphragm is stable. No pneumothorax. Lungs appear c lear. Trace left-sided pleural fluid collection. Mediastinum: Mediastinal contours appear normal. Heart is enlarged IMPRESSION: Left sixth through 10th rib fractures of indeterminate age. Trace left sided pleural fluid collection. Reviewed by: Dee Dee Trejo MD, PhD on 08/08/2021 12:48 PM PST Approved by: Dee Dee Trejo MD, PhD on 08/08/2021 12:48 PM PST Station ID: [id number]
--- NOTE | 2021-08-08 13:28 | ED Physician Documentation ---
History of Present Illness - Stated complaint Stated Complaint: L RIB PAIN - Chief complaint Chief Complaint: Trauma Ch/Bk - History obtained from History obtained from: Patient - Additonal information Additional information: Patient comes emergency department chief complaint of rib pain under her left breast. She states that about 5 days ago, she leaned over in her arm chair and came moderately forcefully against the edge of the arm. She states arm was padded and that the edge of it hit right under her breast. She states she felt a pain in what she thought was her rib area. She states that she figured it would just go away but the pain has persisted. She denies difficulty breathing. She had a more major injury back in the spring in which she fell and fractured several ribs. She said that she spent 2 weeks at [facility] for this. Patient denies any other new injuries or complaints. No fevers or chills. No shortness of breath. Review of Systems Ten Systems: 10 systems reviewed and negative Constitutional: reports: Reviewed and negative Eyes: reports: Reviewed and negative Ears: reports: Reviewed and negative Nose: reports: Reviewed and negative Throat: reports: Reviewed and negative Cardiac: reports: Chest pain / pressure, Reviewed and negative Respiratory: reports: Reviewed and negative GI: reports: Reviewed and negative : reports: Reviewed and negative Skin: reports: Reviewed and negative Musculoskeletal: reports: Reviewed and negative Neurologic: reports: Reviewed and negative Psychiatric: reports: Reviewed and negative Endocrine: reports: Reviewed and negative Immunocompromised: reports: Reviewed and negative PD PAST MEDICAL HISTORY - Past Medical History Cardiovascular: Hypertension, High cholesterol, Murmur Respiratory: Shortness of breath Endocrine/Autoimmune: Type 2 diabetes GI: None : Dialysis, Renal insuffiency HEENT: Chronic vision loss Psych: None Musculoskeletal: Osteoarthritis, Osteoporosis, Osteopenia, Gout, Chronic back pain Derm: Other - Past Surgical History Past Surgical History: Yes 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, Other - Present Medications Home Medications: Ambulatory Orders Medication Instructions Recorded Confirmed Gabapentin 300 mg PO DAILY 06/05/16 12/14/20 Vit B Comp No.3/Folic/C/Biotin 1 tab PO QPM 06/23/17 12/14/20 [Winnie-Janeen Rx Tablet] Acetaminophen [Tylenol Extra 500 mg PO TID 12/21/17 12/14/20 Strength] oxyCODONE [Roxicodone] 5 mg PO Q4HR PRN 12/21/17 12/14/20 allopurinoL [Allopurinol] 2 tab PO DAILY 01/28/18 12/14/20 Metoprolol Succinate 25 mg PO DAILY 05/19/18 12/14/20 Aspirin [Adult Aspirin Regimen] 81 mg PO DAILY 01/27/20 12/14/20 Ferric Citrate [Auryxia] 2 tab AC 01/27/20 12/14/20 Fluticasone [Flonase] 1 spray BID 01/27/20 12/14/20 Ivabradine HCl [Corlanor] 2.5 mg BID 12/14/20 12/14/20 - Allergies Allergies/Adverse Reactions: Allergies Allergy/AdvReac Type Severity Reaction Status Date / Time amoxicillin Allergy Unknown Rash Verified 08/08/21 12:09 codeine Allergy Unknown Nausea Verified 08/08/21 12:09 hydrocodone Allergy Unknown Nausea Verified 08/08/21 12:09 Sulfa (Sulfonamide Allergy Unknown Rash Verified 08/08/21 12:09 Antibiotics) - Social History Does the pt smoke?: No Smoking Status: Never smoker Does the pt drink ETOH?: No Does the pt have substance abuse?: No - Immunizations Immunizations are current?: Yes - POLST Patient has POLST: No PD ED PE NORMAL - Vitals Vital signs reviewed: Yes - General General: Alert and oriented X 3, No acute distress, Well developed/nourished - HEENT HEENT: Atraumatic, PERRL, EOMI, Moist mucous membranes - Neck Neck: Supple, no meningeal sign - Cardiac Cardiac: RRR, No murmur, Strong equal pulses - Respiratory Respiratory: No respiratory distress, Clear bilaterally - Abdomen Abdomen: Soft, Non tender, Non distended - Derm Derm: Normal color, Warm and dry, No rash - Extremities Extremities: No deformity, No edema, No calf tenderness / cord - Neuro Neuro: Alert and oriented X 3, seismograph chief 2-12 intact, Normal speech - Psych Psych: Normal mood, Normal affect PD ED PE EXPANDED - Free text exam Free text exam: Tender chest wall the left anterior area under her breast and medially. No crepitus. No step-off. Palpation recreates the pain patient is feeling. No contusion visible. Results - Vitals Vitals: Vital Signs - 24 hr 08/08/21 12:09 Temperature 36.5 C Heart Rate 87 Respiratory 16 Rate Blood Pressure 121/55 L O2 Saturation 98 Oxygen O2 Source Room air - Rads (name of study) Left ribs and chest x-ray Radiology: Final report received, EMP read indepedently, See rad report (Negative for acute findings; fracture indeterminate age of posterior ribs 6 through 12.) PD MEDICAL DECISION MAKING - ED course Complexity details: reviewed results, re-evaluated patient, considered differential, d/w patient ED course: The patient was well-appearing and had good oxygen saturation and clear lungs. The nature of her injury was somewhat low risk for rib fracture, but given the ongoing pain and her age and risk for osteoporosis, I did get an x-ray. This is negative. We have discussed home management of the symptoms, as well as usual indications for return Departure - Departure Disposition: 01 Home, Self Care Clinical Impression: Contusion of ribs Qualifiers: Encounter type: initial encounter Laterality: left Qualified Code(s): S20.212A - Contusion of left front wall of thorax, initial encounter Condition: Stable Instructions: ED Contusion Rib
== END 2021-08-08 13:42 | disposition home or self-care (01) ==
LOC: ED 11:48
DX: S20.212A Contusion of left front wall of thorax, initial encounter (principal); W22.03XA Walked into furniture, initial encounter; Y93.89 Activity, other specified; Y92.009 Unspecified place in unspecified non-institutional (private) residence as the place of occurrence of the external cause
CPT/HCPCS: 99282; 99283

== ENCOUNTER 2021-11-10 11:51 | Emergency (ER) | payer MEDICARE, BC ==
--- NOTE | 2021-11-10 12:36 | ED Physician Documentation ---
History of Present Illness - Stated complaint Stated Complaint: SOA/WEAKNESS - Chief complaint Chief Complaint: Cardiac - History obtained from History obtained from: Patient - History of Present Illness Timing: How many days ago (3-4) Pain level max: 0 Pain level now: 0 - Additonal information Additional information: Patient is an 86-year-old female, end-stage renal disease on dialysis Thursday and Thursday. Sees Dr. Pang at [facility] in [place]. She is about 2 months status post a mitral valve replacement at the [facility]. She is about 8 months status post a TAVR the [facility]. She states she has been increasingly short of breath over the past several days. Went to dialysis on Thursday, they took off 2.5 L, she states she felt better, but her O2 saturations at home have remained 88-90 on room air. Does not use oxygen at home. No fevers. No cough. Patient is fully anuretic. Nothing makes it better or worse. Review of Systems Ten Systems: 10 systems reviewed and negative Constitutional: denies: Fever, Chills Respiratory: denies: Cough GI: denies: Abdominal Swelling, Nausea, Vomiting, Diarrhea Skin: denies: Rash Musculoskeletal: denies: Neck pain, Back pain Neurologic: denies: Headache PD PAST MEDICAL HISTORY - Past Medical History Cardiovascular: Hypertension, High cholesterol, Murmur Respiratory: Shortness of breath Endocrine/Autoimmune: Type 2 diabetes GI: None : Dialysis, Renal insuffiency HEENT: Chronic vision loss Psych: None Musculoskeletal: Osteoarthritis, Osteoporosis, Osteopenia, Gout, Chronic back pain Derm: Other - Past Surgical History Past Surgical History: Yes 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, Other - Present Medications Home Medications: Ambulatory Orders Medication Instructions Recorded Confirmed Gabapentin 300 mg PO DAILY 06/05/16 12/14/20 Vit B Comp No.3/Folic/C/Biotin 1 tab PO QPM 06/23/17 12/14/20 [Winnie-Janeen Rx Tablet] Acetaminophen [Tylenol Extra 500 mg PO TID 12/21/17 12/14/20 Strength] oxyCODONE [Roxicodone] 5 mg PO Q4HR PRN 12/21/17 12/14/20 allopurinoL [Allopurinol] 2 tab PO DAILY 01/28/18 12/14/20 Metoprolol Succinate 25 mg PO DAILY 05/19/18 12/14/20 Aspirin [Adult Aspirin Regimen] 81 mg PO DAILY 01/27/20 12/14/20 Ferric Citrate [Auryxia] 2 tab AC 01/27/20 12/14/20 Fluticasone [Flonase] 1 spray BID 01/27/20 12/14/20 Ivabradine HCl [Corlanor] 2.5 mg BID 12/14/20 12/14/20 - Allergies Allergies/Adverse Reactions: Allergies Allergy/AdvReac Type Severity Reaction Status Date / Time amoxicillin Allergy Unknown Rash Verified 11/10/21 12:13 codeine Allergy Unknown Nausea Verified 11/10/21 12:13 hydrocodone Allergy Unknown Nausea Verified 11/10/21 12:13 Sulfa (Sulfonamide Allergy Unknown Rash Verified 11/10/21 12:13 Antibiotics) - Social History Does the pt smoke?: No Smoking Status: Never smoker Does the pt drink ETOH?: No Does the pt have substance abuse?: No - Immunizations Immunizations are current?: Yes - POLST Patient has POLST: No PD ED PE NORMAL - Vitals Vital signs reviewed: Yes - General General: Alert and oriented X 3, No acute distress - HEENT HEENT: PERRL, Moist mucous membranes - Neck Neck: Supple, no meningeal sign - Cardiac Cardiac: RRR, Strong equal pulses - Respiratory Respiratory: No respiratory distress, Clear bilaterally - Abdomen Abdomen: Soft, Non tender, Non distended - Derm Derm: Warm and dry - Extremities Extremities: No edema, No calf tenderness / cord - Neuro Neuro: Alert and oriented X 3 - Psych Psych: Normal mood, Normal affect Results - Vitals Vitals: Vital Signs - 24 hr 11/10/21 11/10/21 11/10/21 12:05 12:38 13:57 Temperature 35.9 C L Heart Rate 104 H 99 92 Respiratory 25 H 30 H 22 Rate Blood Pressure 135/55 H 131/67 H O2 Saturation 88 L 96 96 11/10/21 11/10/21 11/10/21 15:00 15:30 16:00 Temperature 36.6 C Heart Rate 98 98 97 Respiratory 25 H 18 16 Rate Blood Pressure 167/98 H 150/83 H 141/71 H O2 Saturation 96 96 96 11/10/21 11/10/21 11/10/21 16:30 17:34 18:00 Temperature 36.6 C Heart Rate 88 90 96 Respiratory 16 18 24 Rate Blood Pressure 136/77 H 143/95 H 167/65 H O2 Saturation 99 98 95 Oxygen O2 Source Room air - EKG (time done) 1212 Rate: Rate (enter#) (101) Rhythm: Sinus tachycardia Intervals: Normal FL, RBBB Ischemia: Q waves (II, III, aVF) - Labs Labs: Laboratory Tests 11/10/21 11/10/21 11/10/21 12:47 12:47 12:47 WBC 9.0 RBC 3.40 L Hgb 10.5 L Hct 33.2 L MCV 97.6 MCH 30.9 MCHC 31.6 L RDW 16.5 H Plt Count 238 MPV 10.2 Neut # (Auto) 6.6 Lymph # (Auto) 0.7 L [place] # (Auto) 1.1 H Eos # (Auto) 0.4 Baso # (Auto) 0.1 Absolute Nucleated RBC 0.00 Nucleated RBC % 0.0 Sodium 135 Potassium 4.8 Chloride 92 L Carbon Dioxide 24 Anion Gap 19.0 H BUN 56 H Creatinine 6.7 H Estimated GFR (MDRD) 6 L Glucose 235 H Calcium 8.4 L Total Bilirubin 0.9 AST 23 ALT 18 Alkaline Phosphatase 112 Troponin I High Sens 113.6 H* B-Natriuretic Peptide Total Protein 7.0 Albumin 3.2 Globulin 3.8 Albumin/Globulin Ratio 0.8 L Lipase 33 Nasal Adenovirus (PCR) Nasal B. parapertussis DNA (PCR) Nasal Coronavir 229E PCR Nasal Coronavir HKU1 PCR Nasal Coronavir NL63 PCR Nasal Coronavir OC43 PCR Nasal Enterovir/Rhinovir PCR Nasal Influenza B PCR Nasal Influenza A PCR Nasal Parainfluen 1 PCR Nasal Parainfluen 2 PCR Nasal Parainfluen 3 PCR Nasal Parainfluen 4 PCR Nasal RSV (PCR) Nasal B.pertussis DNA PCR Nasal C.pneumoniae (PCR) Franki Human Metapneumo PCR Nasal M.pneumoniae (PCR) Nasal SARS-CoV-2 (PCR) 11/10/21 11/10/21 12:47 14:25 WBC RBC Hgb Hct MCV MCH MCHC RDW Plt Count MPV Neut # (Auto) Lymph # (Auto) [place] # (Auto) Eos # (Auto) Baso # (Auto) Absolute Nucleated RBC Nucleated RBC % Sodium Potassium Chloride Carbon Dioxide Anion Gap BUN Creatinine Estimated GFR (MDRD) Glucose Calcium Total Bilirubin AST ALT Alkaline Phosphatase Troponin I High Sens B-Natriuretic Peptide 6130.00 H Total Protein Albumin Globulin Albumin/Globulin Ratio Lipase Nasal Adenovirus (PCR) NOT DETECTED Nasal B. parapertussis DNA (PCR) NOT DETECTED Nasal Coronavir 229E PCR NOT DETECTED Nasal Coronavir HKU1 PCR NOT DETECTED Nasal Coronavir NL63 PCR NOT DETECTED Nasal Coronavir OC43 PCR NOT DETECTED Nasal Enterovir/Rhinovir PCR NOT DETECTED Nasal Influenza B PCR NOT DETECTED Nasal Influenza A PCR NOT DETECTED Nasal Parainfluen 1 PCR NOT DETECTED Nasal Parainfluen 2 PCR NOT DETECTED Nasal Parainfluen 3 PCR NOT DETECTED Nasal Parainfluen 4 PCR NOT DETECTED Nasal RSV (PCR) NOT DETECTED Nasal B.pertussis DNA PCR NOT DETECTED Nasal C.pneumoniae (PCR) NOT DETECTED Franki Human Metapneumo PCR NOT DETECTED Nasal M.pneumoniae (PCR) NOT DETECTED Nasal SARS-CoV-2 (PCR) NOT DETECTED - Rads (name of study) cxr Radiology: Final report received, EMP read contemporaneously, See rad report (No acute cardiopulmonary abnormality. ) PD MEDICAL DECISION MAKING - ED course Complexity details: reviewed results, re-evaluated patient, considered differential, d/w patient, d/w clinical education consultant ED course: 86-year-old female with end-stage renal disease presents to the emergency department with what appears to be increasing congestive heart failure. Elevated BNP. Increasing dyspnea and hypoxia. Patient maintained on oxygen. Discussed the case with the [facility] at 1435, they will see if they have any beds available in the system. They will call us back. Discussed the case with Brinda Hunt at 1445, Valery in the transfer center who believes they do not have any beds but will call us back if they have unavailable. [facility] has no beds, [facility] has no beds. [facility] has no beds. Did receive a call back from Kevin at [facility], Dr. Grant accepts the patient in transfer at 4 PM. COBRA forms completed. Patient will be transferred to [place] for further care. She will need dialysis mikel adrian in the morning. We are unable to do dialysis here. As the patient is fully anuric, we cannot use diuretics here either. Patient transferred This document was made in part using voice recognition software. While efforts are made to proofread this document, sound alike and grammatical errors may occur. Departure - Departure Disposition: 02 Transfer Acute Care Hosp Clinical Impression: Hypoxia Dyspnea Qualifiers: Dyspnea type: unspecified Qualified Code(s): R06.00 - Dyspnea, unspecified CHF (congestive heart failure) Qualifiers: Heart failure type: unspecified Heart failure chronicity: unspecified Qualified Code(s): I50.9 - Heart failure, unspecified Condition: Stable Discharge Date/Time: 11/10/21 18:49
[2021-11-10 12:52] LABS: BASOPHILS # (AUTO) 0.1 10^3/uL (0.0-0.1); BASOPHILS % (AUTO) 1.3 %; EOSINOPHILS # (AUTO) 0.4 10^3/uL (0.0-0.7); EOSINOPHILS % (AUTO) 4.7 %; HCT - HEMATOCRIT 33.2 % (37.0-47.0); HGB - HEMOGLOBIN 10.5 g/dL (12.0-16.0); LYMPHOCYTES # (AUTO) 0.7 10^3/uL (1.5-3.5); LYMPHOCYTES % (AUTO) 7.9 %; MEAN CORPUSCULAR HEMOGLOBIN 30.9 pg (27.0-31.0); MEAN CORPUSCULAR HGB CONC 31.6 g/dL (32.0-36.0); MEAN CORPUSCULAR VOLUME 97.6 fL (81.0-99.0); MEAN PLATELET VOLUME 10.2 fL (7.9-10.8); MONOCYTES # (AUTO) 1.1 10^3/uL (0.0-1.0); MONOCYTES % (AUTO) 12.1 %; NEUTROPHILS # (AUTO) 6.6 10^3/uL (1.5-6.6); NEUTROPHILS % (AUTO) 72.8 %; PLT - PLATELET COUNT 238 10^3/uL (130-450); RED CELL DISTRIBUTION WIDTH 16.5 % (12.0-15.0)
[2021-11-10 13:16] LABS: ALBUMIN 3.2 g/dL (3.2-5.5); ALBUMIN/GLOBULIN RATIO 0.8 (1.0-2.2); BILIRUBIN,TOTAL 0.9 mg/dL (0.2-1.0); CALCIUM 8.4 mg/dL (8.5-10.3); CREATININE 6.7 mg/dL (0.4-1.0); POTASSIUM 4.8 mmol/L (3.5-5.0)
--- NOTE | 2021-11-10 13:44 | XRAY Report ---
PROCEDURE: Chest 1 View X-Ray INDICATIONS: Chest Pain TECHNIQUE: One view of the chest was acquired. COMPARISON: CXR 08/08/2021. FINDINGS: Surgical changes and devices: TAVR stent. Extension to the stent compared to July 2021. Right axi llary clips. Right proximal arm clips. Lungs and pleura: No significant pleural effusions or pneumothorax. Lungs appear clear. Mediastinum: Mediastinal contours appear unchanged. Asymmetric elevation of the right hemidiaphragm. Heart size is enlarged. Bones and chest wall: No suspicious bony lesions. Prior left-sided rib fractures. Overlying soft tis sues appear unremarkable. IMPRESSION: No acute cardiopulmonary abnormality. Reviewed by: John Garcia MD on 11/10/2021 12:43 PM NOE Approved by: John Garcia MD on 11/10/2021 12:43 PM [facility] Station ID: [id number]
[2021-11-10 15:22] LABS: B. PARAPERTUSSIS- RESP PCR PAN NOT DETECTED; B. PERTUSSIS- RESP PCR PANEL NOT DETECTED; C. PNEUMONIAE- RESP PCR PANEL NOT DETECTED; CORONAVIRUS 229E-RESP PCR NOT DETECTED; CORONAVIRUS HKU1-RESP PCR NOT DETECTED; CORONAVIRUS NL63-RESP PCR NOT DETECTED; CORONAVIRUS OC43-RESP PCR NOT DETECTED; HUMAN METAPNEUMOVIRUS NOT DETECTED; INFLUENZA A- RESP PCR PANEL NOT DETECTED; INFLUENZA B - RESP PCR PANEL NOT DETECTED; M. PNEUMONIAE- RESP PCR PANEL NOT DETECTED; PARAINFLUENZA VIRUS 1 NOT DETECTED; PARAINFLUENZA VIRUS 2 NOT DETECTED; PARAINFLUENZA VIRUS 3 NOT DETECTED; PARAINFLUENZA VIRUS 4 NOT DETECTED; RHINOVIRUS/ENTEROVIRUS NOT DETECTED; RSV- RESP PCR PANEL NOT DETECTED; SARS-CoV-2 -RESP PCR PANEL NOT DETECTED
[2021-11-10 18:22] VITALS: BP 167/65
== END 2021-11-10 18:49 | disposition short-term general hospital (02) ==
LOC: ED 11:51
DX: E11.22 Type 2 diabetes mellitus with diabetic chronic kidney disease (principal); I13.2 Hypertensive heart and chronic kidney disease with heart failure and with stage 5 chronic kidney disease, or end stage renal disease; I50.9 Heart failure, unspecified; N18.6 End stage renal disease; Z99.2 Dependence on renal dialysis; R09.02 Hypoxemia; Z20.822 Contact with and (suspected) exposure to COVID-19
CPT/HCPCS: 0202U; 36415; 80053; 83690; 83880; 84484; 85025; 93005; 99283; 99284

== ENCOUNTER 2021-11-30 08:27 | Outpatient (CLI) | payer MEDICARE, BC | END 2021-11-30 08:28 | disposition critical access hospital (66) | LOC: EMS 08:27 | DX: Z76.89 Persons encountering health services in other specified circumstances (principal) | CPT/HCPCS: A0425; A0429 ==

== ENCOUNTER 2021-11-30 08:32 | Emergency (ER) | payer MEDICARE, BC ==
[2021-11-30] MEDS ORDERED: CEFTAZIDIME IV STA (08:35)
[2021-11-30] MEDS ORDERED: SODIUM CHLORIDE 0.9% IV STA (08:35)
--- NOTE | 2021-11-30 08:38 | ED Physician Documentation ---
History of Present Illness - Stated complaint Stated Complaint: DIVERTICULITIS - History obtained from History obtained from: Patient, EMS - History of Present Illness Timing: Today - Additonal information Additional information: 86-year-old Danae Armstrong is a dialysis patient of Dr. JUNG Campos. She has recently been hospitalized at the [facility] for a ruptured diverticulitis. She is on antibiotic and she has been discharged to get antibiotic at dialysis. They were unable to secure the dose of antibiotic yesterday for her to get this. Dr. Mac has requested we administer ceftazidime 3 g intravenously to this patient who will then have dialysis on Thursday. Review of Systems Constitutional: denies: Fever, Chills, Myalgias Nose: denies: Congestion Throat: denies: Sore throat Cardiac: denies: Chest pain / pressure Respiratory: denies: Dyspnea, Cough GI: reports: Nausea. 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, Other - Present Medications Home Medications: Ambulatory Orders Medication Instructions Recorded Confirmed Gabapentin 300 mg PO DAILY 06/05/16 12/14/20 Vit B Comp No.3/Folic/C/Biotin 1 tab PO QPM 06/23/17 12/14/20 [Winnie-Janeen Rx Tablet] Acetaminophen [Tylenol Extra 500 mg PO TID 12/21/17 12/14/20 Strength] oxyCODONE [Roxicodone] 5 mg PO Q4HR PRN 12/21/17 12/14/20 allopurinoL [Allopurinol] 2 tab PO DAILY 01/28/18 12/14/20 Metoprolol Succinate 25 mg PO DAILY 05/19/18 12/14/20 Aspirin [Adult Aspirin Regimen] 81 mg PO DAILY 01/27/20 12/14/20 Ferric Citrate [Auryxia] 2 tab AC 01/27/20 12/14/20 Fluticasone [Flonase] 1 spray BID 01/27/20 12/14/20 Ivabradine HCl [Corlanor] 2.5 mg BID 12/14/20 12/14/20 - Allergies Allergies/Adverse Reactions: Allergies Allergy/AdvReac Type Severity Reaction Status Date / Time amoxicillin Allergy Unknown Rash Verified 11/30/21 08:40 codeine Allergy Unknown Nausea Verified 11/30/21 08:40 hydrocodone Allergy Unknown Nausea Verified 11/30/21 08:40 Sulfa (Sulfonamide Allergy Unknown Rash Verified 11/30/21 08:40 Antibiotics) - Social History Does the pt smoke?: No Smoking Status: Never smoker Does the pt drink ETOH?: No Does the pt have substance abuse?: No - Immunizations Immunizations are current?: Yes - POLST Patient has POLST: No PD ED PE NORMAL - Vitals Vital signs reviewed: Yes (tachy with wide pulse pressure) - General General: Alert and oriented X 3, No acute distress, Well developed/nourished - HEENT HEENT: Atraumatic, PERRL, EOMI - Neck Neck: Supple, no meningeal sign - Respiratory Respiratory: No respiratory distress - Derm Derm: Normal color, Warm and dry, No rash - Extremities Extremities: No deformity - Neuro Neuro: Alert and oriented X 3, 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, No motor deficit, No sensory deficit, Normal speech Eye Opening: Spontaneous Motor: Obeys Commands Verbal: Oriented GCS Score: 15 - Psych Psych: Normal mood, Normal affect Results - Vitals Vitals: Vital Signs - 24 hr 11/30/21 11/30/21 08:37 12:10 Temperature 36.4 C L Heart Rate 101 H 98 Respiratory 16 18 Rate Blood Pressure 130/52 L 122/44 L O2 Saturation 95 99 Oxygen O2 Source Room air PD MEDICAL DECISION MAKING - ED course Complexity details: re-evaluated patient, considered differential, d/w patient ED course: 86-year-old female with a recent history of diverticulitis has been released fr the hospital and she is now resident at [facility]. She has been getting physical therapy and she has only today been able to walk with her walker. She is feeling improved but she is unable to get the required antibiotics at her dialysis. She has an order to get further ceftaz[place]ime at [place] [facility]. She is an extremely difficult intravenous access. It took 3 nurses and 5 tries. We considered a PICC line. We were able to contact [facility] and they are able to provide daily care for a PICC line. We will have to consider placement of a PICC line at her [facility] visit. Departure - Departure Disposition: 01 Home, Self Care Clinical Impression: Diverticulitis Condition: Stable Instructions: ED Diverticulitis Follow-Up: RONNIE FRANZ ARNP [Primary Care Provider] - Manfred Pang MD [Provider Admit Priv/Credential] - Comments: Danae we have been able to infuse the antibiotic ceftazidime 3 g today. Follow-up for your regularly scheduled dialysis on Thursday. Discharge Date/Time: 11/30/21 12:20
[2021-11-30 12:10] VITALS: BP 122/44
== END 2021-11-30 12:20 | disposition home or self-care (01) ==
LOC: EDUNIT# → ED 08:32
DX: Z76.89 Persons encountering health services in other specified circumstances (principal); K57.92 Diverticulitis of intestine, part unspecified, without perforation or abscess without bleeding
CPT/HCPCS: 96365; 99282

== ENCOUNTER 2022-06-05 09:55 | Outpatient (CLI) | payer MEDICARE, BC | END 2022-06-05 09:56 | disposition short-term general hospital (02) | LOC: EMS 09:55 | DX: M25.552 Pain in left hip (principal); W01.0XXA Fall on same level from slipping, tripping and stumbling without subsequent striking against object, initial encounter; Y92.099 Unspecified place in other non-institutional residence as the place of occurrence of the external cause | CPT/HCPCS: A0425; A0429 ==